=== PATIENT | female | born 1935 | race Caucasian/White ===

== ENCOUNTER → 2016-09-11 | Day surgery (SDC) | payer OTHER ==
[2016-08-21 12:55] VITALS: Ht 167.6 cm; Wt 63.6 kg
[~2016-09-11] VITALS: Ht 167.6 cm; Wt 63.6 kg
[~2016-09-11] MED LIST: 500ML BSS 0.3ML EPI 1:1000PF IRRIG ONE; ACETAMINOPHEN 325 MG TAB PO PRN; ALPR-411 PO; ALUMSUS2 PO; AMVISC PLUS 0.8ML SYRINGE INT OCU ONE; ATROPINE SULFATE 0.1 MG/ML 5ML SYR IV PRN; CALC1TAB9 PO; EpHEDrine SULFATE INJ 50 MG/ML AMP IV PRN; EpINEphrine INJ 1MG/ML AMP 1 MG/ML AMP ONE; LACTATED RINGER'S 1000ML 500 ML IV SCH; LIDOCAINE 3.5% OPH GEL PER APPLICATION CHARGE ONE; LIDOCAINE HCL 1% MPF 2 ML VIAL ONE; MIDAZOLAM HCL 1 MG/ML 2ML VIAL ONE; OCUCOAT 1 ML SOLN IO ONE; ONDANSETRON INJ 2 MG/ML 2 ML VIAL IV PRN; PANT20TA2 PO; PATIENT'S ALLERGY INFO NEEDS ENTERED SCH; PHENYLEPHRINE HCL 10% OP SOLN PER DROP CHARGE OPL SCH; POVIDONE-IODINE OP SOLN 30 ML BTL ONE; PROPARACAINE 0.5% OP SOLN PER DROP CHARGE OPL SCH; TOBRAMYCIN/DEXAMETHASONE OPH OINT PER APPLN CHARGE ONE; TRYPAN BLUE 0.15% FOR SURGI CENTER ONLY OP ONE
[2016-09-11] MEDS: PHENYLEPHRINE HCL 2.5% OP SOLN PER DROP CHARGE OPL SCH ×2 (08:23→08:30)
[2016-09-11] MEDS: TROPICAMIDE 1% OP SOLN PER DROP CHARGE OPL SCH ×2 (08:24→08:31)
[2016-09-11] MEDS: CYCLOPENTOLATE HCL 1% OP SOLN PER DROP CHARGE OPL SCH ×2 (08:25→08:32)
[2016-09-11] MEDS: KETOROLAC 0.5% OP SOLN PER DROP CHARGE OPL SCH ×2 (08:27→08:33)
[2016-09-11] MEDS: GATIFLOXACIN OP SOLN PER DROP CHARGE OPL SCH ×2 (08:28→08:38)
--- NOTE | 2016-09-11 09:03 | History & Physical Bridge - [place] ---
H&P Re-Evaluation Bridge Note: I have examined the patient, reviewed the History & Physical and in the interval since the performance of the History & Physical I have noted the following changes of clinical significance: No changes noted
--- NOTE | 2016-09-11 09:38 | Discharge Instructions-SurgCtr ---
Discharge Instructions Date of Service Sep 11, 2016. Visit Reason for Visit: Cataract Left Eye Discharge Discharge Diagnosis / Problem: cataract Discharge Goals Goal(s): Improve function Activity Recommendations Activity Limitations: per Instructions/Follow-up section Anesthesia . Post Anesthesia Instructions: If you have had General Anesthesia or IV Sedation: * Do not drive today. * Resume driving when surgeon permits. * Do not make important decisions or sign legal documents today. * Call surgeon for: 1. Temperature elevations greater than 101 degrees F. 2. Uncontrollable pain. 3. Excessive bleeding. 4. Persistent nausea and vomiting. 5. Medication intolerance (nausea, vomiting or rash). * For nausea and vomiting use only clear liquids such as: tea, soda, bouillon until nausea subsides, then gradually increase diet as tolerated. * If you have any concerns or questions, call your surgeon's office. If physician is unavailable and it is an emergency, call 911 or go to the nearest emergency room. . Instructions / Follow-Up Instructions / Follow-Up ACTIVITY RECOMMENDATIONS: * No strenuous lifting, jogging or running for 4 days * No swimming or yard work for 1 week. * Limited bending is permitted, such as putting on shoes. RETURN TO SCHOOL/WORK: No work until seen by physician in office. MEDICATIONS: Resume previous medications unless instructed otherwise by your surgeon. This includes eye drops for glaucoma. Zymaxid/Gatifloxacin (carmona cap) - one drop every 2 hours until bedtime Nevanac/Ilevro/Prolensa/Ketorolac (cowart cap) - one drop every 4 hours until bedtime Prednisolone (white/pink cap, SHAKE WELL) - one drop every 2 hours until bedtime Starting tomorrow - all 3 drops every 4 hours until seen in the office Optive drops - as needed for discomfort SPECIAL CARE INSTRUCTIONS: * Wear eyeshield when sleeping, for four nights. * You may wear your own glasses or sunglasses while awake. * You may read or watch TV * You may shower and wash your face, but be gentle around the eye and pat dry. * Blurry vision and mild irritation are normal. * Call office if pain is more severe or vision becomes dark at . FOLLOW UP VISIT: Follow-up with Dr Peterson tomorrow. Diet Recommendations Home Diet: resume previous diet Procedures Procedures Performed: Left Cataract Phacoemulsification With Intraocular Lens Implant Pending Studies Studies pending at discharge: no Medical Emergencies . Who to Call and When: Medical Emergencies: If at any time you feel your situation is an emergency, please call 911 immediately. . Non-Emergent Contact Non-Emergency issues call your: [employer] Education [employer] . . "Provider Documentation" section prepared by Ronaldo Peterson. .
--- NOTE | 2016-09-11 09:38 | [facility] Operative Report ---
Operative Report Date of Service Sep 11, 2016. Operative Report 1. PREOPERATIVE DIAGNOSIS: Cataract of the left eye. 2. POSTOPERATIVE DIAGNOSIS: Same. 3. PROCEDURE: Phacoemulsification with intraocular lens implantation of the left eye. SURGEON: Dr. Ronaldo Peterson. ANESTHESIA: Topical Lidocaine gel, 1% Non- Preserved intracameral Lidocaine, and monitored intravenous sedation. INDICATIONS FOR THE PROCEDURE: The patient is a 81 - year-old female with a history of cataract of the left eye causing significant visual impairment. The details of the proposed procedure were explained to the patient who asked appropriate questions and following discussion of all risks, benefits and alternatives agreed to have the procedure done. 4. OPERATION AND FINDINGS: DESCRIPTION OF PROCEDURE: After informed consent was obtained, the patient was brought to the Operating Room at the [facility]. The patient was placed in a supine position and then the left eye was prepped and draped in the usual sterile fashion for intraocular surgery. A drop of topical Lidocaine gel was placed in the operative eye. A wire lid speculum was then placed in the fornices. A corneal paracentesis was then created temporally. The Non-Preserved Lidocaine was then instilled into the anterior chamber. The anterior chamber was then pressurized with viscoelastic. A 2.0 mm clear corneal incision was then created temporally. A cystotome was inserted into the anterior chamber and used to create a tear in the anterior lens capsule. This capsular tear was then used to create a small flap and the flap was dragged in a counterclockwise direction in order to create a continuous curvilinear capsulorrhexis. Hydrodissection was accomplished with balanced salt solution. Phacoemulsification of the lens nucleus was then performed in a standard [id number] technique. The phaco time was 50 seconds with an average power of 26 %. The remaining cortical material was removed using irrigation aspiration. The capsular bag was then filled with viscoelastic. A Bausch [employer] Lomb MI60L +22.0 diopters lens was then loaded into the injector and injected into the capsular bag. The remaining viscoelastic was removed with the irrigation aspiration handpiece. The wound was hydrated and then checked and found to be watertight. The intraocular pressure was checked and found to be adequate. The wire lid speculum was removed and the patient's face was cleaned and dried. TobraDex ointment was placed in the inferior fornix. The patient was discharged to the Recovery Room having tolerated the procedure well. There were no complications. The patient will be seen tomorrow in the office for follow-up. I attest to the content of the Intraoperative Record and any orders documented therein. Any exceptions are noted below.
[2016-09-11 09:41] VITALS: TEMP 36.1
--- NOTE | 2016-09-11 09:47 | Anesthesia Progress Nt - [facility] ---
Anesthesia Post Op Note Date & Time Sep 11, 2016 at 09:47 Vital Signs Pain Intensity: 0 Vital Signs Past 12 Hours Date Time Temp Pulse Resp B/P (MAP) Pulse Ox O2 Delivery O2 Flow Rate FiO2 09/11/16 09:41 36.1 78 16 112/73 (86) 97 Room Air 09/11/16 08:14 36.4 89 18 148/86 (106) 97 Room Air Notes Mental Status: alert / awake / arousable, participated in evaluation Pt Amnestic to Procedure: Yes Nausea / Vomiting: adequately controlled Pain: adequately controlled Airway Patency, RR, SpO2: stable & adequate BP & HR: stable & adequate Hydration State: stable & adequate Anesthetic Complications: no major complications apparent
[2016-09-11 09:55] VITALS: BP 125/71; PULSE 80; O2SAT 98
== END | disposition home or self-care (01) ==
LOC: X.SURG 07:18
PROVIDERS: ATTEND Ophthalmology
DX: H26.9 Unspecified cataract (principal); Z68.23 Body mass index [BMI] 23.0-23.9, adult; Z90.89 Acquired absence of other organs; Z90.49 Acquired absence of other specified parts of digestive tract

== ENCOUNTER → 2016-10-16 | Day surgery (SDC) | payer OTHER ==
[2016-09-19 14:43] VITALS: Ht 167.6 cm; Wt 63.6 kg
[~2016-10-16] VITALS: Ht 167.6 cm; Wt 63.6 kg
[~2016-10-16] MED LIST changes: +BSS FLUSH ONE; -ONDANSETRON INJ 2 MG/ML 2 ML VIAL IV PRN; +PANT20TA PO; -PANT20TA2 PO; -PATIENT'S ALLERGY INFO NEEDS ENTERED SCH; -PHENYLEPHRINE HCL 10% OP SOLN PER DROP CHARGE OPL SCH; +PHENYLEPHRINE HCL 10% OP SOLN PER DROP CHARGE OPR SCH; -PROPARACAINE 0.5% OP SOLN PER DROP CHARGE OPL SCH; +PROPARACAINE 0.5% OP SOLN PER DROP CHARGE OPR SCH; -TRYPAN BLUE 0.15% FOR SURGI CENTER ONLY OP ONE
[2016-10-16] MEDS: PHENYLEPHRINE HCL 2.5% OP SOLN PER DROP CHARGE OPR SCH ×2 (07:23→07:29)
[2016-10-16] MEDS: TROPICAMIDE 1% OP SOLN PER DROP CHARGE OPR SCH ×2 (07:24→07:30)
[2016-10-16] MEDS: CYCLOPENTOLATE HCL 1% OP SOLN PER DROP CHARGE OPR SCH ×2 (07:25→07:31)
[2016-10-16] MEDS: KETOROLAC 0.5% OP SOLN PER DROP CHARGE OPR SCH ×2 (07:26→07:32)
[2016-10-16] MEDS: GATIFLOXACIN OP SOLN PER DROP CHARGE OPR SCH ×2 (07:27→07:38)
--- NOTE | 2016-10-16 08:29 | [facility] Operative Report ---
Operative Report Date of Service Oct 16, 2016. Operative Report 1. PREOPERATIVE DIAGNOSIS: Cataract of the right eye. 2. POSTOPERATIVE DIAGNOSIS: Same. 3. PROCEDURE: Phacoemulsification with intraocular lens implantation of the right eye. SURGEON: Dr. Ronaldo Peterson. ANESTHESIA: Topical Lidocaine gel, 1% Non- Preserved intracameral Lidocaine, and monitored intravenous sedation. INDICATIONS FOR THE PROCEDURE: The patient is a 81 - year-old female with a history of cataract of the right eye causing significant visual impairment. The details of the proposed procedure were explained to the patient who asked appropriate questions and following discussion of all risks, benefits and alternatives agreed to have the procedure done. 4. OPERATION AND FINDINGS: DESCRIPTION OF PROCEDURE: After informed consent was obtained, the patient was brought to the Operating Room at the [facility]. The patient was placed in a supine position and then the right eye was prepped and draped in the usual sterile fashion for intraocular surgery. A drop of topical Lidocaine gel was placed in the operative eye. A wire lid speculum was then placed in the fornices. A corneal paracentesis was then created temporally. The Non-Preserved Lidocaine was then instilled into the anterior chamber. The anterior chamber was then pressurized with viscoelastic. A 2.0 mm clear corneal incision was then created temporally. A cystotome was inserted into the anterior chamber and used to create a tear in the anterior lens capsule. This capsular tear was then used to create a small flap and the flap was dragged in a counterclockwise direction in order to create a continuous curvilinear capsulorrhexis. Hydrodissection was accomplished with balanced salt solution. Phacoemulsification of the lens nucleus was then performed in a standard [id number] technique. The phaco time was 25 seconds with an average power of 14 %. The remaining cortical material was removed using irrigation aspiration. The capsular bag was then filled with viscoelastic. A Bausch & Lomb MI60L +21.5 diopters lens was then loaded into the injector and injected into the capsular bag. The remaining viscoelastic was removed with the irrigation aspiration handpiece. The wound was hydrated and then checked and found to be watertight. The intraocular pressure was checked and found to be adequate. The wire lid speculum was removed and the patient's face was cleaned and dried. TobraDex ointment was placed in the inferior fornix. The patient was discharged to the Recovery Room having tolerated the procedure well. There were no complications. The patient will be seen tomorrow in the office for follow-up. I attest to the content of the Intraoperative Record and any orders documented therein. Any exceptions are noted below.
--- NOTE | 2016-10-16 08:29 | Discharge Instructions-SurgCtr ---
Discharge Instructions Date of Service Oct 16, 2016. Visit Reason for Visit: Right Cataract Discharge Discharge Diagnosis / Problem: cataract Discharge Goals Goal(s): Improve function Activity Recommendations Activity Limitations: per Instructions/Follow-up section Anesthesia . Post Anesthesia Instructions: If you have had General Anesthesia or IV Sedation: * Do not drive today. * Resume driving when surgeon permits. * Do not make important decisions or sign legal documents today. * Call surgeon for: 1. Temperature elevations greater than 101 degrees F. 2. Uncontrollable pain. 3. Excessive bleeding. 4. Persistent nausea and vomiting. 5. Medication intolerance (nausea, vomiting or rash). * For nausea and vomiting use only clear liquids such as: tea, soda, bouillon until nausea subsides, then gradually increase diet as tolerated. * If you have any concerns or questions, call your surgeon's office. If physician is unavailable and it is an emergency, call 911 or go to the nearest emergency room. . Instructions / Follow-Up Instructions / Follow-Up ACTIVITY RECOMMENDATIONS: * No strenuous lifting, jogging or running for 4 days * No swimming or yard work for 1 week. * Limited bending is permitted, such as putting on shoes. RETURN TO SCHOOL/WORK: No work until seen by physician in office. MEDICATIONS: Resume previous medications unless instructed otherwise by your surgeon. This includes eye drops for glaucoma. Zymaxid/Gatifloxacin (carmona cap) - one drop every 2 hours until bedtime Nevanac/Ilevro/Prolensa/Ketorolac (cowart cap) - one drop every 4 hours until bedtime Prednisolone/Durezol (white/pink cap, SHAKE WELL) - one drop every 2 hours until bedtime Starting tomorrow - all 3 drops every 4 hours until seen in the office Optive drops - as needed for discomfort SPECIAL CARE INSTRUCTIONS: * Wear eyeshield when sleeping, for four nights. * You may wear your own glasses or sunglasses while awake. * You may read or watch TV * You may shower and wash your face, but be gentle around the eye and pat dry. * Blurry vision and mild irritation are normal. * Call office if pain is more severe or vision becomes dark at . FOLLOW UP VISIT: Follow-up with Dr Peterson tomorrow. Diet Recommendations Home Diet: resume previous diet Procedures Procedures Performed: Right Cataract Phacoemulsification With Intraocular Lens Implant Pending Studies Studies pending at discharge: no Medical Emergencies . Who to Call and When: Medical Emergencies: If at any time you feel your situation is an emergency, please call 911 immediately. . Non-Emergent Contact Non-Emergency issues call your: [employer] . . "Provider Documentation" section prepared by Ronaldo Peterson. .
[2016-10-16 08:30] VITALS: TEMP 36.5
--- NOTE | 2016-10-16 08:37 | Anesthesia Progress Nt - [facility] ---
Anesthesia Post Op Note Date & Time Oct 16, 2016 at 08:37 Vital Signs Pain Intensity: 0 Vital Signs Past 12 Hours Date Time Temp Pulse Resp B/P (MAP) Pulse Ox O2 Delivery O2 Flow Rate FiO2 10/16/16 08:30 36.5 78 16 105/70 (82) 97 Room Air 10/16/16 07:15 36.5 81 22 150/82 (104) 98 Room Air Notes Mental Status: alert / awake / arousable, participated in evaluation Pt Amnestic to Procedure: Yes Nausea / Vomiting: adequately controlled Pain: adequately controlled Airway Patency, RR, SpO2: stable & adequate BP & HR: stable & adequate Hydration State: stable & adequate Anesthetic Complications: no major complications apparent
[2016-10-16 08:52] VITALS: BP 122/75; PULSE 72; O2SAT 98
== END | disposition home or self-care (01) ==
LOC: X.SURG 06:30
PROVIDERS: ATTEND Ophthalmology
DX: H26.9 Unspecified cataract (principal); I10 Essential (primary) hypertension; E78.5 Hyperlipidemia, unspecified; K21.9 Gastro-esophageal reflux disease without esophagitis; F41.9 Anxiety disorder, unspecified; Z79.899 Other long term (current) drug therapy

== ENCOUNTER 2023-11-08 12:24 | Observation (INO) ==
[2023-11-08 13:26] LABS: Basophils # (auto) 0.05 K/uL (0.00-0.20); Basophils % (auto) 0.4 %; Eosinophils # (auto) 0.04 K/uL (0.00-0.50); Eosinophils % (auto) 0.3 %; Hematocrit (blood only) 46.8 % (37.0-47.0); Hemoglobin 15.3 g/dl (12.0-16.0); Immature Granulocytes # (auto) 0.07 K/uL (0.01-0.20); Immature Granulocytes % (auto) 0.6 %; Lymphocytes % (auto) 31.7 %; Mean Corpuscular Hemoglobin 28.8 pg (25.0-34.0); Mean Corpuscular Hgb Conc 32.7 g/dL (32.0-36.0); Mean Corpuscular Volume 88.1 fL (80.0-100.0); Mean Platelet Volume 11.6 fL (9.4-12.4); Monocytes # (auto) 0.83 K/uL (0.11-0.59); Monocytes % (auto) 6.6 %; Neutrophils # (auto) 7.64 K/uL (1.40-6.50); Neutrophils % (auto) 60.4 %; Platelet Count 301 K/uL (130-400); RDW Coefficient of Variation 14.9 % (11.5-14.5); RDW Standard Deviation 47.1 fL (36.4-46.3); Red Blood Count 5.31 M/uL (4.20-5.40); White Blood Count 12.63 K/ul (4.8-10.8)
[2023-11-08 13:35] LABS: Albumin Globulin Ratio 1.5 (0.9-2); Albumin Level 4.3 gm/dl (3.4-5.0); BUN Creatinine Ratio 13.9 (10-20); Bilirubin,Total 0.6 mg/dl (0.2-1.0); Creatinine Clr Calc Pharmacy 35.7 ml/min; Est GFR (African American) 49.9 ml/min; Globulin 2.9 gm/dl (2.5-4.0); Potassium 4.4 mmol/L (3.5-5.1); Total Protein 7.2 gm/dl (6.0-8.3)
[2023-11-08 13:43] LABS: Troponin I High Sensitivity 5.4 pg/ml (0-14)
[2023-11-08 13:56] LABS: Partial Thromboplastin Ratio 0.9; Partial Thromboplastin Time 25 Seconds (21-31); Prothrombin Time 10.5 Seconds (9.0-12.0)
[2023-11-08] MEDS: OPTIRAY 320 100ml IV ONE (14:30)
--- NOTE | 2023-11-08 15:05 | CT Scan Report ---
ABDOMEN AND PELVIS CT WITH IV CONTRAST CT DOSE: 1100.21 mGy.cm HISTORY: rectal bleeding TECHNIQUE: Multiaxial CT images of the abdomen and pelvis were performed following the use of intrave nous contrast. A dose lowering technique was utilized adhering to the principles of ALARA. COMPARISON STUDY: None. FINDINGS: The lung bases are clear. No pneumoperitoneum. No pneumatosis. No acute fractures. Mitral a nnulus calcifications are noted. Prior cholecystectomy. The main portal vein is patent. The liver, sp sam, left adrenal gland, and pancreas are unremarkable. Bilateral renal hypodense lesions are noted with the largest on the left measuring 1.5 cm. These favor cysts. However, the majority of these hypo dense lesions are technically too small to characterize. There is an indeterminate 2.9 cm right adren al gland nodule. A few prominent periportal lymph nodes are noted. Moderate to severe calcified plaqu e within the normal caliber abdominal aorta. No retroperitoneal or pelvic lymphadenopathy. No pelvic free fluid. Normal bladder. Prior hysterectomy. Colonic diverticulosis. No evidence for acute diverti culitis. No bowel wall thickening or obstruction. IMPRESSION: 1. No bowel wall thickening or obstruction. 2. Colonic diverticulosis. No evidence for acute diverticulitis. 3. Prior cholecystectomy and hysterectomy. 4. An indeterminate 2.9 cm right adrenal gland nodule. 5. Additional findings as described above. ACT 112: Negative or not required by law. Electronically signed by: Carroll Ovalle M.D. 11/08/2023 3:04 PM
--- NOTE | 2023-11-08 17:12 | History & Physical Report ---
Date of Service November 08, 2023 History of Present Illness Chief Complaint: rectal bleeding Primary Care Provider: Nicole Gamble MD Patient is 88 year old female with PMH HTN, dyslipidemia paroxysmal atrial fibrillation, GERD History LUE DVT 03/2023 after acute left humerus fracture 02/2023 treated with Eliquis x 3 months. 05/15/2023 LUE venous Doppler negative for DVT Negative Cologuard 12/[address] scan 2020 Allergies Allergy/AdvReac Type Severity Reaction Status Date / Time benzonatate AdvReac Intermediate "FELT Verified 11/08/23 16:47 SPACED OUT" Home Medications Medication Instructions Recorded Confirmed Type metoprolol succinate 25 mg 25 mg PO QAM 12/27/19 11/08/23 History tablet,extended release 24 hr famotidine 20 mg tablet 20 mg PO QAM 11/08/23 11/08/23 History Past Med/Surg History Problem List (Updated 11/08/23 @ 17:16 by Orlin Tejada MD) Acute lower GI bleeding (Acute) Left humeral fracture Osteoporosis (Chronic) HTN (hypertension) (Chronic) Vitamin D deficiency (Chronic) GERD (gastroesophageal reflux disease) (Chronic) Dyslipidemia (Chronic) Surgical History Status post cataract extraction and insertion of intraocular lens Status post cholecystectomy Status post hysterectomy Family History Sister Leukemia Brother Diabetes Daughter Lymphoma Social History Smoking Status: Former smoker Hx Alcohol Use: No Hx Substance Use: No Preferred Language: Kazakh Communication Ability: Effective Fire Protection Designer Required: No Beliefs That Will Affect Care: None Current Living Situation: Alone Feels Safe at Home: Yes Assistive Devices: None Results & Data Results & Data Vital Signs (Past 12 Hours) Vital Signs Temp Pulse Pulse Resp BP BP Pulse Ox 11/08/23 14:45 80 20 153/88 H 96 11/08/23 14:09 89 11/08/23 13:30 151/97 H 11/08/23 13:30 83 18 97 11/08/23 13:23 147/96 H 11/08/23 13:21 98 H 22 95 11/08/23 13:18 88 97 11/08/23 13:09 87 16 97 11/08/23 12:33 36.6 C 94 H 20 182/68 H 96 O2 Del Method 11/08/23 14:45 Room Air 11/08/23 14:09 11/08/23 13:30 11/08/23 13:30 11/08/23 13:23 11/08/23 13:21 11/08/23 13:18 Room Air 11/08/23 13:09 11/08/23 12:33 Room Air
--- OUTSIDE RECORDS SUMMARY | 2023-11-08 17:13 | External Medical Summary | Summary of Care ---
Author Name Unknown Organization [facility] Address [address] [place] [address] Phone [phone] Care Team Providers Care Deicer Repairer Electric Name Role Phone Nicole Gamble MD Primary Care Provider [phone] Reason for Visit * Reason Onset Date Comments Medication Refill 07/04/2023 Encounter Details Date Type Department Care Team (Late st Contact Info) Description 07/04/2023 Refill General Internal Medicine [facility] [address] [facility] [place] [phone] Nicole Gamble MD 200 [facility], [place] [id number] Paroxysmal A-fib (HCC); HTN, goal below 140/90 Allergies Active Allergy Reactions Criticality Noted Date Comments Benzonatate Other (Please comment) Medium 02/20/2011 Feeling "spaced out" documented as of this encounter (statuses as of 07/04/2023) Medications Medication Sig Dispensed Refills Start Date End Date Status Vitamin D-3 25 MCG (1000 UT) Oral Capsule Take 1 Capsule by mouth in the morning. 0 Active Ondansetron HCl 4 MG Oral TabletIndications: Bilateral upper abdominal discomfort,Nausea without vomiting Take 1 Tablet by mouth every 8 hours as needed for Nausea. 30 Tablet 0 12/21/2022 Active traMADol HCl 50 MG Oral Tablet (Ultram)Indication s:Closed fracture of shaft of left humerus with routine healing, unspecified fracture morphology, subsequent encounter Take 1 Tablet by mouth every 8 hours as needed. 0 02/08/2023 Active Famotidine 20 MG Oral Tablet (Pepcid)Indication s:Gastroesophageal reflux disease without esophagitis Take 1 Tablet by mouth daily. 90 Tablet 3 04/07/2023 Active Apixaban 5 MG Oral Tablet (Eliquis)Indicatio ns:Acute deep vein thrombosis (DVT) of brachial vein of left upper extremity (HCC),Closed fracture of shaft of left humerus with routine healing, unspecified fracture morphology, subsequent encounter Take 1 Tablet by mouth in the morning and 1 Tablet before bedtime. Started by [facility] 03/16/23 , US arm 3rd wk may. Do not start before May 11, 2023. 60 Tablet 0 05/11/2023 Active Loratadine 10 MG Oral Tablet (Claritin)Indicati ons:Post-nasal drip Take 1 Tablet by mouth at bedtime. 30 Tablet 11 05/02/2023 Active Metoprolol Succinate ER 25 MG Oral Tablet Extended Release 24 Hour (toPROL XL)Indications:Par oxysmal A-fib (HCC),HTN, goal below 140/90 TAKE 1 TABLET BY MOUTH IN THE MORNING 90 Tablet 3 07/04/2023 Active Metoprolol Succinate ER 25 MG Oral Tablet Extended Release 24 Hour (toPROL XL)Indications:Par oxysmal A-fib (HCC),HTN, goal below 140/90 TAKE 1 TABLET BY MOUTH IN THE MORNING 90 Tablet 3 07/17/2022 07/04/2023 Discontinued (Refill) documented as of this encounter (statuses as of 07/04/2023) Active Problems Problem Noted Date Diagnosed Date Adrenal adenoma, right 10/10/2020 Overview: 01/26--CT adrenal--c/w benign adrenal adenoma 3.2 x 2.5cm,small hiatal hernia, fatty atrophy pancreas and atherosclerosis vessels,aortic root and coronary artery calcifications. 09/26-CT of the abdomen pelvis-small hiatal hernia, bilateral renal cysts which are simple. 3.2 x 2 cm Indeterminate right adrenal lesion. ++yoav Complex renal cyst 08/21/2020 Overview: 08/26-US-c/w MRD, 1 cm complex cyst Prediabetes 08/16/2020 Overview: Per Prediabetes protocol Closed fracture of right humerus with routine he aling 05/09/2020 [facility] Gastroes[facility] reflux disease without esophagi tis 07/21/2019 Paroxysmal A-fib 09/23/2018 Immunization refused 02/03/2018 Status post cataract extraction 02/03/2018 Advanced directives, counseling/discussion 08/29 Family history of diabetes mellitus 06/19/2011 Papanicolaou smear 06/19/2011 Overview: Vag smear - 2003--no iel. Per INSPECTOR SUBASSEMBLIES Note--2003--S/P WALDEMAR done in 1973 and BSO was done in 1975. Vitamin D deficiency 06/19/2011 Overview: 06/17=8--st 50k 2/wk HTN, goal below 140/90 02/20/2011 Senile osteoporosis 01/23/2011 Overview: 08/19-ref meds. 06/17---REFUSES meds/hiroc DEXA:05/2010: Lumbar spine: -3.9/ Femoral neck:-3.3 high risk Dyslipidemia, goal LDL below 130 03/21/2009 Overview: Per Lipid Taxonomy. Rx refused, attempting lifestyle changes Anxiety 07/07/2004 Overview: Rare use xanax (dtr 2009) documented as of this encounter (statuses as of 07/04/2023) Resolved Problems Problem Noted Date Diagnosed Date Resolved Date Kidney disease, chronic, sta ge III (GFR 30-59 ml/min) 02/17/2018 09/23/2018 Overview: Per CKD protocol #1 Abnormal finding on EKG 07/12/201509/06 Overview: 07/22--er--ST,?old inf mi---pt refuses further franklin Refusal of treatment by patient 07/12/2015 09/23/2018 Overview: 07/22-refuses to use inhaler, franklin abn ekg GERD (gastroesophageal reflux disease) 01/23/2012 07/21/2019 Special screening for malign ant neoplasms, colon 06/19/2011 03/25/2019 Overview: 06/17---declines csope--will do fobt --08/19-same Encounter for screening mamm ogram for breast cancer 02/27/2011 03/25/2019 Overview: 03/21-Lt neg;-Rt FAD-SCV/US-neg rec 6mth fu+++++ Neg 02/17;;03/20; 02/16--left --neg--Rt --FAD 12 ocl--SCV/US---neg Impaired fasting glucose 02/20/2011 HYPERCHOLESTEROLEMIA 07/08/200303/21/ 009 Overview: Per Lipid Taxonomy. Rx refused, attempting lifestyle changes Senile cataract 07/08/2003 02/03/2018 documented as of this encounter (statuses as of 07/04/2023) Immunizations Name Administration Dates Next Due COVID-19 mRNA, LNP-s, No Pre serve, 2-Dose Series (SyndicateRoom) 03/16/2021,01/11/2021 documented as of this encounter Social History Tobacco Use Types Packs/Day Years Used Date Smoking Tobacco: Never Smokeless Tobacco: Never Alcohol Use Standard Drinks/Week Comments No 0 (1 standard drink = 0.6 oz pur e alcohol) PHQ-2 Answer Date Recorded PHQ Adult Total Score 0 04/17/2022 Hunger Vital Sign Answer Date Recorded Within the past 12 months, y ou worried that your food would run out before you got the money to buy more. Never true 08/09/19 21 Within the past 12 months, t he food you bought just didn't last and you didn't have money to get more. Never true 08/08/2020 Sex and Gender Information Value Date Recorded Sex Assigned at Female 09/23/2018 11:20 AM EDT Gender Identity Female 09/23/2018 11:20 AM EDT Sexual Orientation Straight 09/23/2018 11 :20 AM EDT Job Start Date Occupation Industry Not on file Not on file Not on file documented as of this encounter Miscellaneous Notes * Telephone Encounter - Shannon Farias [facility] - 07/04/2023 4:08 PM EDTSigned Prescriptions: Disp Refills Metoprolol Succinate ER 25 MG Oral Tablet *90 Tab*3 Sig: TAKE 1 TABLET BY MOUTH IN THE MORNING Authorizing Provider: NICOLE GAMBLE Ordering User: SHANNON FARIAS * Telephone Encounter - Luis Alex, morgue technician - 07/04/2023 3:30 PM EDT Pt low on meds. Did you pend patient's preferred pharmacy and medication before forwarding?yes Pharmacy: [facility] [address] Pending Prescriptions: Disp Refills Metoprolol Succinate ER 25 MG Oral Tablet*90 Tab*3 Sig: TAKE 1 TABLET BY MOUTH IN THE MORNING Last Visit: 05/02/2023 (in office), 08/05/2019 (telemedicine) Next Visit: 08/19/2023 If no future appointments scheduled, and last appointment is greater than a year ago, please schedule patient for a follow-up appointment Last date the medication was ordered: 07/17/2022 Is this request for a controlled substance?No Urine Drug Screen:No results found for this or any previous visit. Patient Phone Numbers Labs: Lab Results Component Value Date/Time CREAT 1.1 (H) 06/20/2023 06:59 AM CREAT 1.0 07/21/2019 11:20 AM POTASSIUM 5.1 06/20/2023 06:59 AM POTASSIUM 5.0 07/21/2019 11:20 AM TSH 3.98 08/08/2020 12:42 PM TSH 3.20 06/14/2011 07:05 AM LDLCALC 175 (H) 04/17/2022 09:20 AM LDLCALC 174 (H) 07/21/2019 11:27 AM LDLDIRECT 178 (H) 12/21/2022 10:35 AM LDLDIRECT NOT APPLICABLE 07/21/2019 11:27 AM LDLDIRECT 186 (H) 07/10/2004 07:00 AM ALT 14 06/20/2023 06:59 AM ALT 14 2013 07:03 AM HGBA1C 6.2 (H) 06/20/2023 06:59 AM documented in this encounter Plan of Treatment Upcoming Encounters Date Type Department Care Team (Late st Contact Info) Description 07/23/2023 12:30 PM EDT Office Visit Gastroenterology, [facility] [place] [address] [place] [phone] Renetta Hernandez PA-C [address] [place] [address] 08/19/2023 11:20 AM EDT Office Visit General Internal Medicine [facility] 200 [place] [address] Nicole Gamble MD 200 [place] [address] Health Maintenance Due Date Last Done Comments DTaP,Tdap,and Td Vaccines (1 - Tdap) 1954 Zoster Vaccines (1 of 2) 09/08/1987 Pneumococcal Vaccine: 65+ Years (1 of 1 - PCV) 2002 DXA Scan 05/17/2012 05/17/2010, 05/17/2010 *BISPHONATE OR OTHER ACCEPTABLE MEDICATION NEEDED FOR OSTEOPOROSIS (REFER TO SMARTSET #1146) 01/12/2016 COVID-19 Vaccine ( season) 2022 03/16/2021, 01/11/2021 Influenza Vaccine (FLU shot) (#1) 2022 Depression Screening 04/17/2023 04/17/2022 HbA1c 06/19/2024 06/20/2023, 12/07, 04/17/2022, Additional history exists Albumin/Creatinine Ratio 04/17/2025 04/17/2022 VITAMIN D LEVEL ONCE IN A LIFETIME-USE SMARTSET# 11177 Completed 06/20/2023, 12/21/2022, 04/17/2022, Additional history exists GARDASIL-HPV IMMUNIZATION SERIES Aged Out No longer eligible based on patient's age to complete this topic Hepatitis B Aged Out No longer eligi ble based on patient's age to complete this topic MENINGOCOCCAL (MENACTRA/MENVEO) Aged Out No longer eligible based on patient's age to complete this topic documented as of this encounter Medical Devices Not on filedocumented as of this encounter Visit Diagnoses Diagnosis Paroxysmal A-fib (HCC) Atrial fibrillation HTN, goal below 140/90 Unspecified essential hypertension documented in this encounter Care Teams Deicer Repairer Electric Relationship Specialty Start Date End Date Nicole Gamble MD 200 [place] [address] PCP - General Internal Medicine 11/21/10 documented as of this encounter
--- OUTSIDE RECORDS SUMMARY | 2023-11-08 17:13 | External Medical Summary | Summary of Care ---
Author Name Unknown Organization [facility] Address [address] [place] [address] Phone [phone] Care Team Providers Care Middle School Band Teacher Name Role Phone Nicole Gabmle MD Primary Care Provider [phone] Reason for Visit * Reason Onset Date Comments Test Results 07/04/2023 Encounter Details Date Type Department Care Team (Late st Contact Info) Description 07/04/2023 Telephone General Internal Medicine [facility] [address] [place] [address] Nicole Gamble MD [address] [place] [address] Test Results Allergies Active Allergy Reactions Criticality Noted Date Comments Benzonatate Other (Please comment) Medium 02/20/2011 Feeling "spaced out" documented as of this encounter (statuses as of 08/07/2023) Medications Medication Sig Dispensed Refills Start Date End Date Status Vitamin D-3 25 MCG (1000 UT) Oral Capsule Take 1 Capsule by mouth in the morning. 0 Active Ondansetron HCl 4 MG Oral TabletIndications:Devyn ateral upper abdominal discomfort,Nausea without vomiting Take 1 Tablet by mouth every 8 hours as needed for Nausea. 30 Tablet 0 12/21/2022 Active traMADol HCl 50 MG Oral Tablet (Ultram)Indications:C losed fracture of shaft of left humerus with routine healing, unspecified fracture morphology, subsequent encounter Take 1 Tablet by mouth every 8 hours as needed. 0 02/08/2023 Active Famotidine 20 MG Oral Tablet (Pepcid)Indications:G astroesophageal reflux disease without esophagitis Take 1 Tablet by mouth daily. 90 Tablet 3 04/07/2023 Active Apixaban 5 MG Oral Tablet (Eliquis)Indications: Acute deep vein thrombosis (DVT) of brachial vein of left upper extremity (HCC),Closed fracture of shaft of left humerus with routine healing, unspecified fracture morphology, subsequent encounter Take 1 Tablet by mouth in the morning and 1 Tablet before bedtime. Started by [facility] 03/16/23 , US arm 3rd wk may. Do not start before May 11, 2023. 60 Tablet 0 05/11/2023 Active Loratadine 10 MG Oral Tablet (Claritin)Indications :Post-nasal drip Take 1 Tablet by mouth at bedtime. 30 Tablet 11 05/02/2023 Active documented as of this encounter (statuses as of 08/07/2023) Active Problems Problem Noted Date Diagnosed Date [...] with routine he aling 05/09/2020 Overview: 12/2019-panchito Leone-[facility] Gastroesophageal reflux disease without esophagi tis 07/21/2019 Paroxysmal A-fib 09/23/2018 Immunization refused 02/03/2018 Status post cataract extraction 02/03/2018 Advanced directives, counseling/discussion 08/29 Family history of diabetes mellitus 06/19/2011 Papanicolaou smear 06/19/2011 Overview: Vag smear - 2003--no iel. Per [employer] OFFICER Note--2003--S/P WALDEMAR done in 1973 and BSO [...] as of this encounter (statuses as of 08/07/2023) Resolved Problems Problem Noted Date Diagnosed Date [...] as of this encounter (statuses as of 08/07/2023) Immunizations Name Administration Dates Next Due COVID-19 mRNA, LNP-s, No Pre serve, 2-Dose Series ([employer]ft) 03/16/2021,01/11/2021 documented as of this encounter Social [...] encounter Miscellaneous Notes * Telephone Encounter - Felicity Gibbs RN - 08/07/2023 12:31 PM EDT US scheduled for 07/17 - Message from Sean Servin MD sent at 07/26/2023 1:52 PM EDT ----- Liver ultrasound looks ok, would continue recs from pcp for elevated alk phos Encounter closed * Telephone Encounter - Gianna Roberto MED ASSIST - 07/09/2023 8:39 AM EDT Patient aware and verbalized understanding Please assist with scheduling U/S * Telephone Encounter - Felicity Gibbs RN - 07/04/2023 2:38 PM EDT ----- Message from Nicole Gamble MD sent at 07/02/2023 11:42 PM EDT ----- A1c consistent with prediabetes 6.2%, vitamin-D remains low at 16, normal CBC, CMP except alk phos higher. -yoav US liver, to comply with taking vit d daily -refer to GI for eval. documented in this encounter Plan of Treatment Upcoming Encounters Date Type Department Care Team (Late st Contact Info) Description 08/09/2023 11:00 AM EDT Office Visit Gastroenterology, [address] [phone] Yelena Moreau PA-C [facility] [place] [address] 08/19/2023 11:20 AM EDT Office Visit General Internal Medicine [facility] [address] [place] [address] Nicole Gamble MD [address] [place] [address] Health Maintenance Due Date Last Done Comments DTaP,Tdap,and Td Vaccines (1 - Tdap) 1954 Zoster Vaccines (1 of 2) 09/08/1987 Pneumococcal Vaccine: 65+ Years (1 of 1 - PCV) 2002 DXA Scan 05/17/2012 05/17/2010, 05/17/2010 *BISPHONATE OR OTHER ACCEPTABLE MEDICATION NEEDED FOR OSTEOPOROSIS (REFER TO SMARTSET #1146) 01/12/2016 COVID-19 Vaccine (24 season) 2022 03/16/2021, 01/11/2021 Depression Screening 04/17/2023 04/17/2022 Influenza Vaccine (FLU shot) (Season Ended) 2023 HbA1c 06/19/2024 06/20/2023, 12/07, 04/17/2022, Additional history exists Albumin/Creatinine Ratio 04/17/2025 04/17/2022 VITAMIN D LEVEL ONCE IN A LIFETIME-USE SMARTSET# [id number] Completed 06/20/2023, 12/21/2022, 04/17/2022, Additional history exists [...] Not on filedocumented as of this encounter Care Teams Middle School Band Teacher Relationship Specialty Start Date End Date Nicole Gamble MD [address] [place] [address] PCP - General Internal Medicine 11/21/10 documented as of this encounter
--- OUTSIDE RECORDS SUMMARY | 2023-11-08 17:13 | External Medical Summary | Summary of Care ---
Author Name Unknown Organization [facility] Address [address] [place] [address] Phone [phone] Care Team Providers Care Narrow Gauge Operator Name Role Phone Nicole Gamble MD Primary Care Provider [phone] Reason for Visit * Reason Onset Date Comments Appointment 07/12/2023 Encounter Details Date Type Department Care Team (Late st Contact Info) Description 07/12/2023 Telephone General Internal Medicine [facility] [address] [place] [address] Nicole Gamble MD 200 [place] [address] Appointment Allergies Active Allergy Reactions Criticality Noted Date Comments Benzonatate Other (Please comment) Medium 02/20/2011 Feeling "spaced out" documented as of this encounter (statuses as of 07/12/2023) Medications Medication Sig Dispensed Refills Start Date [...] Oral Tablet Extended Release 24 Hour (toPROL XL)Indications:Paroxy smal A-fib (HCC),HTN, goal below 140/90 TAKE 1 TABLET BY MOUTH IN THE MORNING 90 Tablet 3 07/04/2023 Active documented as of this encounter (statuses as of 07/12/2023) Active Problems Problem Noted Date Diagnosed Date [...] with routine he aling 05/09/2020 Overview: 12/2019-panchito Leone-[facility] Gastroesophageal reflux disease without esophagi tis 07/21/2019 Paroxysmal A-fib 09/23/2018 Immunization refused 02/03/2018 Status post cataract extraction 02/03/2018 Advanced directives, counseling/discussion 08/29 Family history of diabetes mellitus 06/19/2011 Papanicolaou smear 06/19/2011 Overview: Vag smear - 2003--no iel. Per SUPERVISOR CELLARS Note--2003--S/P WALDEMAR done in 1973 and BSO was done in 1975. Vitamin D deficiency 06/19/2011 Overview: 06/17=8--st 50k 2/wk HTN, goal below 140/90 02/20/2011 Senile osteoporosis 01/23/2011 Overview: 08/19-ref meds. 06/17---REFUSES meds/hiroc DEXA:05/2010: Lumbar spine: -3.9/ Femoral neck:-3.3 high risk Dyslipidemia, goal LDL below 130 03/21/2009 Overview: Per Lipid Taxonomy. Rx refused, attempting lifestyle changes Anxiety 07/07/2004 Overview: Rare use xanax (dtr 2009 BCL) documented as of this encounter (statuses as of 07/12/2023) Resolved Problems Problem Noted Date Diagnosed Date [...] ogram for breast cancer 02/27/2011 03/25/2019 Overview: 12/14-Lt neg;-Rt FAD-SCV/US-neg rec 6mth fu+++++ Neg 02/17;;03/20; 02/16--left --neg--Rt --FAD 12 ocl--SCV/US---neg Impaired fasting glucose 02/20/2011 HYPERCHOLESTEROLEMIA 07/08/2003 009 Overview: Per Lipid Taxonomy. Rx refused, attempting lifestyle changes Senile cataract 07/08/2003 02/03/2018 documented as of this encounter (statuses as of 07/12/2023) Immunizations Name Administration Dates Next Due COVID-19 mRNA, LNP-s, No Pre serve, 2-Dose Series (Applitools) 03/16/2021,01/11/2021 documented as of this encounter Social [...] encounter Miscellaneous Notes * Telephone Encounter - Cortney Graham OSA - 07/12/2023 9:22 AM EDT Pt needs to schedule [employer] [[employer]] (Order [id number]) - Reflex for Order [id number] LMOM 07/12/2023 RMK documented in this encounter Plan of Treatment Upcoming Encounters Date Type Department Care Team (Late st Contact Info) Description 07/23/2023 12:30 PM EDT Office Visit Gastroenterology, [place] [facility] [address] [place] [phone] Renetta Hernandez PA-C [address] [facility] [place] [address] 08/19/2023 11:20 AM EDT [facility] [place] [address] [place] [address] Nicole Gamble MD [address] [facility] [place] [address] Health Maintenance Due Date Last Done Comments DTaP,Tdap,and Td Vaccines (1 - Tdap) 1954 Zoster Vaccines (1 of 2) 09/08/1987 Pneumococcal Vaccine: 65+ Years (1 of 1 - PCV) 2002 DXA Scan 05/17/2012 05/17/2010, 05/17/2010 *BISPHONATE OR OTHER ACCEPTABLE MEDICATION NEEDED FOR OSTEOPOROSIS (REFER TO SMARTSET #1146) 01/12/2016 COVID-19 Vaccine ( season) 2022 03/16/2021, 01/11/2021 Depression Screening 04/17/2023 04/17/2022 Influenza Vaccine (FLU shot) (Season Ended) 2023 HbA1c 06/19/2024 06/20/2023, 12/07, 04/17/2022, Additional history exists Albumin/Creatinine Ratio 04/17/2025 04/17/2022 VITAMIN D LEVEL ONCE IN A LIFETIME-USE SMARTSET# [id number] Completed 06/20/2023, 12/21/2022, 04/17/2022, Additional history exists [...] filedocumented as of this encounter Care Teams Narrow Gauge Operator Relationship Specialty Start Date End Date Nicole Gamble MD 200 [place] [address] PCP - General Internal Medicine 11/21/10 documented as of this encounter
--- OUTSIDE RECORDS SUMMARY | 2023-11-08 17:13 | External Medical Summary | Summary of Care ---
Author Name Unknown Organization [facility] Address [address] [place] [address] Phone [phone] Care Team Providers Care Hotel Associate Name Role Phone Nicole Gamble MD Primary Care Provider Reason for Visit * Reason Onset Date Comments Test Results 07/30/2023 Encounter Details Date Type Department Care Team (Late st Contact Info) Description 07/30/2023 Telephone General Internal Medicine [facility] [address] [place] [address] Sean Servin MD [address] [place] [address] Test Results Allergies Active Allergy Reactions Criticality Noted Date Comments Benzonatate Other (Please comment) Medium 02/20/2011 Feeling "spaced out" documented as of this encounter (statuses as of 07/30/2023) Medications Medication Sig Dispensed Refills Start Date [...] and 1 Tablet before bedtime. Started by [facility] ER 03/16/23 , US arm 3rd wk fe. Do not start before May 11, 2023. [...] as of this encounter (statuses as of 07/30/2023) Active Problems Problem Noted Date Diagnosed Date [...] with routine he aling 05/09/2020 Overview: 12/2019-panchito Leone-[facility] Gastroesophageal reflux disease without esophagi tis 07/21/2019 Paroxysmal A-fib 09/23/2018 Immunization refused 02/03/2018 Status post cataract extraction 02/03/2018 Advanced directives, counseling/discussion 08/29 Family history of diabetes mellitus 06/19/2011 Papanicolaou smear 06/19/2011 Overview: Vag smear - 2003--no iel. Per [employer]ER [employer] TECHNICIAN Note--2003--S/P WALDEMAR done in 1973 and BSO [...] as of this encounter (statuses as of 07/30/2023) Resolved Problems Problem Noted Date Diagnosed Date [...] as of this encounter (statuses as of 07/30/2023) Immunizations Name Administration Dates Next Due COVID-19 mRNA, LNP-s, No Pre serve, 2-Dose Series (conXt) 03/16/2021,01/11/2021 documented as of this encounter Social [...] encounter Miscellaneous Notes * Telephone Encounter - Gianna Roberto MED ASSIST - 07/30/2023 11:50 AM EDT Patient aware and verbalized understanding * Telephone Encounter - Gianna Roberto MED ASSIST - 07/30/2023 11:48 AM EDT ----- Message from Sean Servin MD sent at 07/26/2023 1:52 PM EDT ----- Liver ultrasound looks ok, would continue recs from pcp for elevated alk phos documented in this encounter Plan of Treatment Upcoming Encounters Date Type Department Care Team (Late st Contact Info) Description 07/31/2023 11:00 AM EDT Office Visit Gastroenterology, [address] [place] [address] [place] [address] Renetta Hernandez PA-C [facility] [address] [place], [place] [id number] 08/19/2023 11:20 AM EDT Office Visit General Internal Medicine [facility] [address] [place] [address] Nicole Gamble MD 200 [facility] [place] [address] Health Maintenance Due Date Last Done Comments DTaP,Tdap,and Td Vaccines (1 - Tdap) 1954 Zoster Vaccines (1 of 2) 09/08/1987 Pneumococcal Vaccine: 65+ Years (1 of 1 - PCV) 2002 DXA Scan 05/17/2012 05/17/2010, 05/17/2010 *BISPHONATE OR OTHER ACCEPTABLE MEDICATION NEEDED FOR OSTEOPOROSIS (REFER TO SMARTSET #1146) 01/12/2016 COVID-19 Vaccine (3 2022- season) 2022 03/16/2021, 01/11/2021 Depression Screening 04/17/2023 04/17/2022 Influenza Vaccine (FLU shot) (Season Ended) 2023 HbA1c 06/19/2024 06/20/2023, 12/07, 04/17/2022, Additional history exists Albumin/Creatinine Ratio 04/17/2025 04/17/2022 VITAMIN D LEVEL ONCE IN A LIFETIME-USE SMARTSET# 11504 Completed 06/20/2023, 12/21/2022, 04/17/2022, Additional history exists [...] filedocumented as of this encounter Care Teams Hotel Associate Relationship Specialty Start Date End Date Nicole Gamble MD 200 [facility] [place] [address] PCP - General Internal Medicine 11/21/10 documented as of this encounter
--- OUTSIDE RECORDS SUMMARY | 2023-11-08 17:13 | External Medical Summary | Summary of Care ---
Author Name Unknown Organization [facility] Address [address] [place] [address] Phone [phone] Care Team Providers Care Entry Level Project Coordinator Name Role Phone Nicole Gamble MD Primary Care Provider [phone] Reason for Visit * Reason Comments NEW PATIENT Elevated alkaline ph oshatase * Evaluate & Treat - Unlimited Visits (Within 10 days (routine)) - Authorized Specialty Diagnoses / Procedures Referred By Yaquelin valentin Referred To Contact Gastroenterology Diagnoses Elevated alkaline phosphatase level Nicole Gamble MD [address] [place] [address] Referral ID Status Reason Start Date Expiration Date Visits Requested Visits Authorized [id number] Authorized Specialty Services Required 07/02/2023 [id number] Encounter Details Date Type Department Care Team (Late st Contact Info) Description 08/09/2023 11:00 AM EDT Office Visit Gastroenterology, [facility] [address] [place] [phone] Yelena Moreau PA-C [address] [place] [id number] Elevated alkaline phosphatase level* Allergies Active Allergy Reactions Criticality Noted Date Comments Benzonatate Other (Please comment) Medium 02/20/2011 Feeling "spaced out" documented as of this encounter (statuses as of 08/09/2023) Medications Medication Sig Dispensed Refills Start Date End Date Status Vitamin D-3 25 MCG (1000 UT) Oral Capsule Take 1 Capsule by mouth in the morning. 0 Active Ondansetron HCl 4 MG Oral TabletIndications:B ilateral upper abdominal discomfort,Nausea without vomiting Take 1 Tablet by mouth every 8 hours as needed for Nausea. 30 Tablet 0 12/21/2022 Active traMADol HCl 50 MG Oral Tablet (Ultram)Indications :Closed fracture of shaft of left humerus with routine healing, unspecified fracture morphology, subsequent encounter Take 1 Tablet by mouth every 8 hours as needed. 0 02/08/2023 Active Famotidine 20 MG Oral Tablet (Pepcid)Indications :Gastroesophageal reflux disease without esophagitis Take 1 Tablet by mouth daily. 90 Tablet 3 04/07/2023 Active Apixaban 5 MG Oral Tablet (Eliquis)Indication s:Acute deep vein thrombosis (DVT) of brachial vein of left upper extremity (HCC),Closed fracture of shaft of left humerus with routine healing, unspecified fracture morphology, subsequent encounter Take 1 Tablet by mouth in the morning and 1 Tablet before bedtime. Started by [facility] 03/16/23 , US arm 3rd wk may. Do not start before May 11, 2023. 60 Tablet 0 05/11/2023 Active Additional Information Patient not taking.Reported on 08/09/2023 Loratadine 10 MG Oral Tablet (Claritin)Indicatio ns:Post-nasal drip Take 1 Tablet by mouth at bedtime. 30 Tablet 11 05/02/2023 Active Additional Information Patient not taking.Reported on 08/09/2023 Metoprolol Succinate ER 25 MG Oral Tablet Extended Release 24 Hour (toPROL XL)Indications:Paro xysmal A-fib (HCC),HTN, goal below 140/90 TAKE 1 TABLET BY MOUTH IN THE MORNING 90 Tablet 3 07/04/2023 Active documented as of this encounter (statuses as of 08/09/2023) Active Problems Problem Noted Date Diagnosed Date [...] humerus with routine he aling 05/09/2020 Overview: 12/2019-fu [facility] Gastroesophageal reflux disease without esophagi tis 07/21/2019 Paroxysmal A-fib 09/23/2018 Immunization refused 02/03/2018 Status post cataract extraction 02/03/2018 Advanced directives, counseling/discussion 08/29 Family history of diabetes mellitus 06/19/2011 Papanicolaou smear 06/19/2011 Overview: Vag smear - 2003--no iel. Per BRAND MARKETING MANAGER Note--2003--S/P WALDEMAR done in 1973 and BSO [...] as of this encounter (statuses as of 08/09/2023) Resolved Problems Problem Noted Date Diagnosed Date [...] as of this encounter (statuses as of 08/09/2023) Immunizations Name Administration Dates Next Due COVID-19 mRNA, LNP-s, No Pre serve, 2-Dose Series ([employer]) 03/16/2021,01/11/2021 documented as of this encounter Social [...] on file documented as of this encounter Last Filed Vital Signs Vital Sign Reading Time Taken Comments Blood Pressure 150/90 08/09/2023 10:56 AM EDT Pulse 89 08/09/2023 10:56 AM EDT Temperature 36.4 C (97.5 F) 08/09/2023 1 0:56 AM EDT Respiratory Rate 18 08/09/2023 10:5 6 AM EDT Oxygen Saturation - - Inhaled Oxygen Concentration - - Weight 71.6 kg (157 lb 12.8 oz) 024 10:56 AM EDT Height 167.6 cm (5' 6") 08/09/2023 10:5 6 AM EDT Body Mass Index 25.47 08/09/2023 10:56 AM EDT documented in this encounter Progress Notes * Yelena Moreau PA-C - 08/09/2023 10:59 AM EDT PCP: PCP: NICOLE GAMBLE [address] [place] [address], [place] [id number] CC: elevated ALP HPI: 87 year old female with a hx of HTN, Afib/on eliquis, DLD, GERD, osteoporosis and others, referred today for evaluation of elevated ALP. Chart review shows a fairly consistent elevation since 2020, and intermittently prior to that. Patient is feeling well and denies any abdominal pain or upper GI symptoms. Bowels are moving regularly, about twice daily. No red blood or dark stools. She does not drink ETOH. No hx if IV or IN drug use. No piercings/tattoos. Unsure of hx of prior blood transfusion, but does not think so. Denies use of herbal meds or anything that is not on her med list. Uses Tylenol rarely, and only one tablet daily when she does. RUQ ultrasound 07/18/23 - IMPRESSION: Status post cholecystectomy. Within normal limits. CTAP 01/18/21 - FINDINGS LINES AND DEVICES: None. LOWER CHEST: Mitral annular calcifications. There are aortic root and coronary artery calcifications. Small hiatal hernia. LIVER: Within normal limits. BILE DUCTS: Within normal limits. GALLBLADDER: Status post cholecystectomy. PANCREAS: Mild fatty atrophy. SPLEEN: Within normal limits. ADRENALS: There is a 3.2 x 2.5 cm right adrenal nodule. The precontrast density measurement is 7.56Hounsfield units. The postcontrast density measurement is 63.8 Hounsfield units. The delayed density measurement is 22.2 Hounsfield units. The absolute washout is 73.9%. The relative washout is 65.2%. KIDNEYS/URETERS: Bilateral cysts. BOWEL: There is no bowel obstruction. There is sigmoid diverticulosis without evidence for diverticulitis. BLADDER: Unremarkable REPRODUCTIVE ORGANS: The uterus is not identified and may have been surgically removed. LYMPH NODES: Within normal limits. VESSELS: Extensive atherosclerotic calcifications. PERITONEUM/RETROPERITONEUM: No ascites, free air, or fluid collections. ABDOMINAL WALL/SOFT TISSUES: Within normal limits. BONES: There are degenerative changes of the spine and hips. There is mild anterolisthesis of L4 onL5 which is likely on a degenerative basis. ROS: Constitutional: no weight loss, no weakness, and no fatigue Eyes: no worsening of vision and no eye pain, redness, discharge ENT: no hearing loss, no congestion, no runny nose, no sore throat Resp: no cough, no sputum, no wheezing, and no SOB Cardiac: no chest pain, no orthopnea, and no dyspnea on exertion Female : no dysuria and no incontinence Neuro: no memory loss and no weakness Heme: no fever, no chills, no sweats, and no bleeding/bruising Endo: no unplanned weight change, no excessive thirst, and no excessive urination Skin: no rash, no itching, and no new/changing skin lesions ALLERGIES: Review of patient's allergies indicates: Allergen Reactions Benzonatate Other (Please comment) Feeling "spaced out" Current Outpatient Medications Medication Sig Dispense Refill Vitamin D-3 25 MCG (1000 UT) Oral Capsule Take 1 Capsule by mouth in the morning. Ondansetron HCl 4 MG Oral Tablet Take 1 Tablet by mouth every 8 hours as needed for Nausea. 30 Tablet 0 Famotidine 20 MG Oral Tablet (Pepcid) Take 1 Tablet by mouth daily. 90 Tablet 3 Metoprolol Succinate ER 25 MG Oral Tablet Extended Release 24 Hour (toPROL XL) TAKE 1 TABLET BY MOUTH IN THE MORNING 90 Tablet 3 traMADol HCl 50 MG Oral Tablet (Ultram) Take 1 Tablet by mouth every 8 hours as needed. (Patient not taking: Reported on 08/09/2023) Apixaban 5 MG Oral Tablet (Eliquis) Take 1 Tablet by mouth in the morning and 1 Tablet before bedtime. Started by [facility] 03/16/23 , US arm 3rd wk may. Do not start before May 11, 2023. (Patient not taking: Reported on 08/09/2023) 60 Tablet 0 Loratadine 10 MG Oral Tablet (Claritin) Take 1 Tablet by mouth at bedtime. (Patient not taking: Reported on 08/09/2023) 30 Tablet 11 No current facility-administered medications for this visit. Past Medical History: Diagnosis Date Blepharitis Encounter for screening mammogram for breast cancer 02/27/201103/21-Lt neg;-Rt FAD-GAV/US-neg rec 6mth fu+++++ Neg 02/17;;03/20; 02/16--left --neg--Rt --FAD 12 ocl--GAV/US---neg Generalized anxiety disorder 07/07/2004 GERD (gastroesophageal reflux disease) 01/23/2012 HTN, goal below 140/90 02/20/2011 HYPERCHOLESTEROLEMIA 07/08/2003 Impaired fasting glucose 02/20/2011 Senile cataract OU Senile osteoporosis 01/23/201108/19-ref meds. 06/17---REFUSES meds/hiroc DEXA:05/2010: Lumbar spine: -3.9/ Femoral neck:-3.3 high risk Special screening for malignant neoplasms, colon 06/19/201106/17---declines csope--will do fobt --08/19-same Past Surgical History: Procedure Laterality Date LAPAROSCOPY; CHOLECYSTECTOMY 02/06 Naomy LASERING OF SECONDARY CATARACT Bilateral 08/2018 REMOVAL OF OVARY/OVIDUCT(S) 1975 REMOVE CATARACT, INSERT LENS PROSTH Bilateral 09/22,10/22 [facility] TOTAL ABD HYSTERECTOMY W/WO REMOVAL OF TUBE(S) 1973 WALDEMAR- Family History Problem Relation Age of Onset Diabetes Brother No Past Hx Brother Hypertension Sister sec left RASt-sp stent 10/21 SOCIAL HISTORY: Social History Tobacco Use Smoking status: Never Smokeless tobacco: Never Substance Use Topics Alcohol use: No Vaping/E-Cigarette Use Vaping/E-Cigarette Use Never User Passive Exposure No Counseling Given? No Vaping/E-Cigarette Substances Vaping/E-Cigarette Devices PHYSICAL EXAM BP 150/90 | Pulse 89 | Temp 36.4 C (97.5 F) | Resp 18 | Ht 1.676 m (5' 6") | Wt 71.6 kg (157 lb12.8 oz) | BMI 25.47 kg/m | BSA 1.83 m GENERAL: alert and no distress HEAD: Normocephalic, No masses, lesions or abnormalities EYES: conjunctiva are pink and non-injected, sclera clear NECK: supple LUNGS: clear to auscultation HEART: regular rate & rhythm ABDOMEN: abdomen soft, non-tender, normal bowel sounds, and no masses or organomegaly EXTREMITIES: no edema NEURO: alert & oriented x 3 with fluent speech, no focal motor/sensory deficits ASSESSMENT: ICD-10-CM 1. Elevated alkaline phosphatase level R74.8 PLAN: Abbreviated serologic work up will be obtained, including fractionation of ALP. Results will be communicated to the patient. Further testing/follow up will be determined pending results. Yelena Moreau PA-C documented in this encounter Nursing Notes * Mecca Rendon RN - 08/09/2023 10:56 AM EDT Chief Complaint Patient presents with NEW PATIENT Elevated alkaline phoshatase PT states liver US was ok, denies and GI complaints. Bowels move daily, no melena/BRB. documented in this encounter Plan of Treatment Upcoming Encounters Date Type Department Care Team (Late st Contact Info) Description 08/19/2023 11:20 AM EDT Office Visit General Internal Medicine [facility] Morales [address] [place] [address] Nicole Gamble MD [address] [facility] [place] [address] Scheduled Orders Name Type Priority Associated Diagnoses Orde r Schedule ANTINUCLEAR ANTIBODY (KIMMY) EIA SCREEN WITH REFLEX AB QUANT Lab Routine Elevated alkaline phosphatase level Expected: 08/09/2023 (Approximate), Expires: 08/08/2024 ACTIN (SMOOTH MUSCLE) ANTIBODY (IGG) Lab Routine Elevated alkaline phosphatase level Expected: 08/09/2023 (Approximate), Expires: 08/08/2024 IGG Lab Routine Elevated alkaline phosphatase level Expected: 08/09/2023 (Approximate), Expires: 08/08/2024 MITOCHONDRIAL ANTIBODY Lab Routine Elevated alkaline phosphatase level Expected: 08/09/2023 (Approximate), Expires: 08/08/2024 IRON SCREEN, INCLUDING TIBC Lab Routine Elevated alkaline phosphatase level Expected: 08/09/2023 (Approximate), Expires: 08/08/2024 FERRITIN Lab Routine Elevated alkaline phosphatase level Expected: 08/09/2023 (Approximate), Expires: 08/08/2024 ACUTE HEPATITIS PANEL Lab Routine Elevated alkaline phosphatase level Expected: 08/09/2023 (Approximate), Expires: 08/08/2024 SERUM PROTEIN ELECTROPHORESIS REFLEX PROFILE Lab Routine Elevated alkaline phosphatase level Expected: 08/09/2023 (Approximate), Expires: 08/08/2024 ALKALINE PHOSPHATASE FRACTIONATION Lab Routine Elevated alkaline phosphatase level Expected: 08/09/2023 (Approximate), Expires: 08/08/2024 Health Maintenance Due Date Last Done Comments [...] D LEVEL ONCE IN A LIFETIME-USE SMARTSET# [id number] Completed 06/20/2023, 12/21/2022, 04/17/2022, Additional history exists [...] as of this encounter Visit Diagnoses Diagnosis Elevated alkaline phosphatase level- Primary Other nonspecific abnormal serum enzyme levels documented in this encounter Care Teams Entry Level Project Coordinator Relationship Specialty Start Date End Date Nicole Gamble MD [address] [facility] [place] [address] PCP - General Internal Medicine 11/21/10 documented as of this encounter
--- OUTSIDE RECORDS SUMMARY | 2023-11-08 17:13 | External Medical Summary | Summary of Care ---
Author Name Unknown Organization [facility] Address [address] [place] [address] Phone [phone] Care Team Providers Care Superintendent Building Name Role Phone Nicole Gamble MD Primary Care Provider [phone] Reason for Referral * (Within 10 days (routine)) - Authorized Specialty Diagnoses / Procedures Referred By Yaquelin valentin Referred To Contact Radiology Diagnoses Elevated alkaline phosphatase level Procedures US ABDOMEN LIMITED Nicole Gamble MD [address] [place] [address] Referral ID Status Reason Start Date Expiration Date V isits Requested Visits Authorized [id number] Authorized 07/03/2023 [id number] Reason for Visit * (Within 10 days (routine)) - Authorized Specialty Diagnoses / Procedures Referred By Yaquelin valentin Referred To Contact Radiology Diagnoses Elevated alkaline phosphatase level Procedures US ABDOMEN LIMITED Nicole Gamble MD [address] [place] [address] Referral ID Status Reason Start Date Expiration Date V isits Requested Visits Authorized [id number] Authorized 07/03/[phone] Encounter Details Date Type Department Care Team (Latest Contact Info) Description 07/18/2023 9:16 AM EDT - 07/18/2023 11:59 PM EDT Hospital Encounter Radiology, [address] [address] Arrived Discharge Disposition: Home - Self Care Allergies Active Allergy Reactions Criticality Noted Date Comments Benzonatate Other (Please comment) Medium 02/20/2011 Feeling "spaced out" documented as of this encounter (statuses as of 07/19/2023) Medications Medication Sig Dispensed Refills Start Date [...] bedtime. Started by [facility] 03/16/23 , US arm 3rd wk [...] as of this encounter (statuses as of 07/19/2023) Active Problems Problem Noted Date Diagnosed Date [...] 05/09/2020 Overview: 12/2019-fu [facility] Gastroesophageal reflux disease without esophagi tis 07/21/2019 Paroxysmal A-fib 09/23/2018 Immunization refused 02/03/2018 Status post cataract extraction 02/03/2018 Advanced directives, counseling/discussion 08/29 Family history of diabetes mellitus 06/19/2011 Papanicolaou smear 06/19/2011 Overview: Vag smear - 2003--no iel. 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'S ATTENDANT Note--2003--S/P WALDEMAR done in 1973 and BSO [...] as of this encounter (statuses as of 07/19/2023) Resolved Problems Problem Noted Date Diagnosed Date [...] as of this encounter (statuses as of 07/19/2023) Immunizations Name Administration Dates Next Due COVID-19 mRNA, LNP-s, No Pre serve, 2-Dose Series ([email or web address]) 03/16/2021,01/11/2021 documented as of this encounter Social [...] on file documented as of this encounter Plan of Treatment Upcoming Encounters Date Type Department Care Team (Late st Contact Info) Description 07/23/2023 12:30 PM EDT Office Visit Gastroenterology, [address] [place] [address] [address] [place] [address] Renetta Hernandez PA-C [facility] [place] [address] 08/19/2023 11:20 AM EDT Office Visit General Internal Medicine [facility] [address] [place] [address] Nicole Gamble MD [address] [place] [address] Health Maintenance Due Date Last Done Comments [...] D LEVEL ONCE IN A LIFETIME-USE SMARTSET# [id number] Completed 06/20/2023, 12/21/2022, 04/17/2022, Additional history exists [...] Not on filedocumented as of this encounter Procedures Procedure Name Priority Date/Time Associated Diagnosis Comments US ABDOMEN LIMITED Routine 07/18/2023 9: 54 AM EDT Elevated alkaline phosphatase level documented in this encounter Results * US ABDOMEN LIMITED (07/18/2023 9:54 AM EDT) Anatomical Region Laterality Modality Abdomen, Body Ultrasound 07/18/2023 10:1 2 AM EDT Impressions 07/18/2023 10:10 AM EDT IMPRESSION: Status post cholecystectomy. Within normal limits. Narrative 07/18/2023 10:10 AM EDT EXAM: US ABDOMEN LIMITED HISTORY: abn alk phos TECHNIQUE: Real-time scanning is performed right upper quadrant COMPARISON: CT abdomen pelvis dated 01/18/2021; CT abdomen dated 09/21/2020 FINDINGS: Gallbladder: Not identified compatible with patient's history prior cholecystectomy. No intrahepatic biliary dilatation. There is no extrahepatic biliary dilatation with the common duct measuring approximately 4 mm. There is no gross choledocholithiasis. Liver: Size length: Right lobe approximate 14.4 cm. Visualized parenchyma relatively homogeneous and within normal limits as to echotexture without discrete focal lesion. Visualized surface contour smooth without nodularity. Ascites: None demonstrated right upper quadrant Pancreas: Unfortunately, pancreatic bed somewhat obscured by overlying bowel. Particularly distal body and tail of pancreas obscured. Visualized parenchyma demonstrates no discrete focal lesion or pancreatic ductal dilatation. Right Kidney: Size length: 9.7 cm. Contour relatively maintained. In the upper aspect of the kidney there is an ovoid well-defined sonolucent (allowing for technical artifact) structure ultrasonographically compatible with cyst measuring 1.1 cm x 1.1 cm x 1.1 cm. No other focal lesion identified. Cortex appears maintained in regard to thickness/echotexture. No hydronephrosis. No demonstrable intrarenal calculus or perinephric abnormality. Right pleural effusion: None demonstrated. Procedure Note Magdaleno Carson MD - 07/18/2023 EXAM: US ABDOMEN LIMITED HISTORY: abn alk phos TECHNIQUE: Real-time scanning is performed right upper quadrant COMPARISON: CT abdomen pelvis dated 01/18/2021; CT abdomen dated 09/21/2020 FINDINGS: Gallbladder: Not identified compatible with patient's history priorcholecystectomy. No intrahepatic biliary dilatation. There is no extrahepatic biliarydilatation with the common duct measuring approximately 4 mm. There is nogross choledocholithiasis. Liver: Size length: Right lobe approximate 14.4 cm. Visualized parenchyma relatively homogeneous and within normal limits asto echotexture without discrete focal lesion. Visualized surface contoursmooth without nodularity. Ascites: None demonstrated right upper quadrant Pancreas: Unfortunately, pancreatic bed somewhat obscured by overlyingbowel. Particularly distal body and tail of pancreas obscured.Visualized parenchyma demonstrates no discrete focal lesion or pancreaticductal dilatation. Right Kidney: Size length: 9.7 cm. Contour relatively maintained. In theupper aspect of the kidney there is an ovoid well-defined sonolucent(allowing for technical artifact) structure ultrasonographicallycompatible with cyst measuring 1.1 cm x 1.1 cm x 1.1 cm. No other focallesion identified. Cortex appears maintained in regard tothickness/echotexture. No hydronephrosis. No demonstrable intrarenal calculus or perinephric abnormality. Right pleural effusion: None demonstrated. IMPRESSION IMPRESSION: Status post cholecystectomy. Within normal limits. Nicole Gamble MD RAD ULTRASOUND documented in this encounter Visit Diagnoses Diagnosis Elevated alkaline phosphatase level Other nonspecific abnormal serum enzyme levels documented in this encounter Care Teams Superintendent Building Relationship Specialty Start Date End Date Nicole Gamble MD [address] [place] [address] PCP - General Internal Medicine 11/21/10 documented as of this encounter
--- NOTE | 2023-11-08 17:16 | Emergency Department Note ---
Impression & Plan Acute lower GI bleeding ED Provider Note NAME: RADU ARRINGTON AGE: 88 SEX: Female INFORMANT: Patient ED PROVIDER(S): Orlin Tejada MD CHIEF COMPLAINT: Rectal bleeding PLAN: Disposition: Admitted Outpatient prescription management: none Referral: None patient presented because of rectal bleeding. MEDICAL DECISION MAKING: Rectal examination revealed Hemoccult positive brown stool. There was no signs of active bleeding externally. There was a small external hemorrhoid that was nonthrombosed. Patient had a leukocytosis on CBC but no significant anemia. Given the leukocytosis and 2 episodes of bloody bowel movements CT imaging was performed. Patient did have a benign abdominal examination. Patient underwent CT imaging and no acute findings were noted. Diverticulosis was noted. Suspect that this is a lower GI bleed. Given the multiple episodes discussed further evaluation and management in the hospital. Patient was in agreement. [facility] Patient was evaluated in the ER and admitted for further management. 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 Vital Signs: reviewed and remarkable for hypertension Additional History obtained from: none Chronic Medical/Social Conditions affecting care: GERD, hypertension Prior/ Outside/ External records reviewed: none Differential Diagnosis: Diverticulosis, AVM, coagulopathy, colitis, inflammatory bowel disease, malignancy, Wendy-Mayer tear, esophagitis, peptic ulcer disease, variceal bleed, gastritis, epistaxis, fissure, hemorrhoids, as well as other pathologies. Diagnostics, independently interpreted by me: ECG: Twelve-lead ECG reveals a normal sinus rhythm at 82 bpm. Left axis deviation. No ST elevation or depression Cardiac Monitoring: Cardiac monitoring ordered by me: The patient was placed on continuous cardiac monitoring and observed. It revealed a normal sinus rhythm at 80 beats per minute without ectopy or evidence of dysrhythmia. Medical decision rules: none Imaging studies: I refer you to the EMR for further details. HPI: 88 year old Female arrives for evaluation of rectal bleed. This started today and is described as 2 large bloody red bowel movements. Brown stool mixed in, no melena or constipation symptoms. The patient also notes the following associated symptoms, none. The patient has taken no medication for relieving factors. Current pain is rated as 0/10. Pt denies LOC, headache, fevers, chills, diaphoresis, visual changes, neck pain, chest pain, breathing difficulties, nausea, vomiting, abdominal pain, back pain, melena, urinary symptoms, numbness, weakness, lymphadenopathy, rash, or other complaints.. PAST MEDICAL HISTORY: See Below, hypertension PAST SURGICAL HISTORY: See Below, SOCIAL HISTORY: See Below, retired HOME MEDICATIONS: See Below ALLERGIES: See Below VITALS: See Below PHYSICAL EXAMINATION: GENERAL: Awake, alert, well-appearing, in no distress HENT: Normocephalic, atraumatic. Oropharynx unremarkable. EYES: Normal conjunctiva. Sclera non-icteric. NECK: Inspection normal. Non-tender. Supple. No nuchal rigidity. FROM. No masses. RESPIRATORY: Clear to auscultation. No wheezes. No rales. Normal respiratory effort. CARDIAC: Normal rate. Normal rhythm. No murmurs. No rubs. Extremities warm and well perfused. Pulses equal. No JVD. GI: Soft, non-distended. No tenderness to palpation. No rebound or guarding. No masses. RECTAL: Hemoccult positive. Brown stool. Nonthrombosed external hemorrhoid present without signs of bleeding. MUSCULOSKELETAL: Atraumatic. Chest examination reveals no tenderness. The back is symmetrical on inspection without obvious abnormality. There is no CVA tenderness to palpation. No joint edema. LOWER EXTREMITIES: Calves are equal size bilaterally and non-tender. No edema. No discoloration. NEURO: Normal sensorium. No sensory or motor deficits noted. SKIN: No rash or jaundice noted. PROCEDURES: none CRITICAL CARE: none OBSERVATION NOTE: none Past Med/Surg History Problem List (Updated 11/08/23 @ 19:17 by Rocael Bowman MD) Hematochezia Acute lower GI bleeding (Acute) Left humeral fracture Osteoporosis (Chronic) HTN (hypertension) (Chronic) Vitamin D deficiency (Chronic) GERD (gastroesophageal reflux disease) (Chronic) Dyslipidemia (Chronic) Surgical History Status post cataract extraction and insertion of intraocular lens Status post cholecystectomy Status post hysterectomy Family History Sister Leukemia Brother Diabetes Daughter Lymphoma Social History Smoking Status: Former smoker Hx Alcohol Use: No Hx Substance Use: No Preferred Language: Bermudian Communication Ability: Effective Human Resources Designate Required: No Beliefs That Will Affect Care: None Current Living Situation: Alone Feels Safe at Home: Yes Assistive Devices: None Allergies Allergies Allergy/AdvReac Type Severity Reaction Status Date / Time benzonatate AdvReac Intermediate "FELT Verified 11/08/23 16:47 SPACED OUT" Home Meds Home Medications Medication Instructions Recorded Confirmed metoprolol succinate 25 mg 25 mg PO QAM 12/27/19 11/08/23 tablet,extended release 24 hr famotidine 20 mg tablet 20 mg PO QAM 11/08/23 11/08/23 Results & Data (ED) Vital Signs Vital Signs - 24 hr 11/08/23 12:33 11/08/23 13:09 11/08/23 13:18 Temperature 36.6 C Temperature Source Temporal Artery Scan Pulse Rate 94 H 87 88 Pulse Rate [Apical] Pulse Rate from SpO2 Sensor 86 Pulse Rhythm Regular Pulse Strength Normal Respiratory Rate 20 16 Respiratory Effort / Characteristics Non-Labored Spontaneous Respiratory Depth Normal Respiratory Pattern Regular Blood Pressure 182/68 H Blood Pressure [Right Arm] Blood Pressure Mean 106 Blood Pressure Mean [Right Arm] Blood Pressure Position Sitting Blood Pressure Position [Right Arm] Pulse Oximetry 96 97 97 Oxygen Delivery Method Room Air Room Air Sepsis Recent Fever Within 48 Hours No Sepsis New/Unexplained Change in Mental Status No Sepsis Action Taken by Nursing No Action Required 11/08/23 13:21 11/08/23 13:23 11/08/23 13:30 Temperature Temperature Source Pulse Rate 98 H 83 Pulse Rate [Apical] Pulse Rate from SpO2 Sensor 98 H 84 Pulse Rhythm Pulse Strength Respiratory Rate 22 18 Respiratory Effort / Characteristics Respiratory Depth Respiratory Pattern Blood Pressure 147/96 H Blood Pressure [Right Arm] Blood Pressure Mean 110 Blood Pressure Mean [Right Arm] Blood Pressure Position Blood Pressure Position [Right Arm] Pulse Oximetry 95 97 Oxygen Delivery Method Sepsis Recent Fever Within 48 Hours Sepsis New/Unexplained Change in Mental Status Sepsis Action Taken by Nursing 11/08/23 13:30 11/08/23 13:30 11/08/23 14:00 Temperature Temperature Source Pulse Rate Pulse Rate [Apical] Pulse Rate from SpO2 Sensor Pulse Rhythm Pulse Strength Respiratory Rate Respiratory Effort / Characteristics Respiratory Depth Respiratory Pattern Blood Pressure 151/97 H 151/97 H 129/80 Blood Pressure [Right Arm] Blood Pressure Mean 113 113 82 Blood Pressure Mean [Right Arm] Blood Pressure Position Blood Pressure Position [Right Arm] Pulse Oximetry Oxygen Delivery Method Sepsis Recent Fever Within 48 Hours Sepsis New/Unexplained Change in Mental Status Sepsis Action Taken by Nursing 11/08/23 14:00 11/08/23 14:00 11/08/23 14:09 Temperature Temperature Source Pulse Rate 81 89 Pulse Rate [Apical] Pulse Rate from SpO2 Sensor 81 Pulse Rhythm Pulse Strength Respiratory Rate 17 Respiratory Effort / Characteristics Respiratory Depth Respiratory Pattern Blood Pressure 129/80 Blood Pressure [Right Arm] Blood Pressure Mean 82 Blood Pressure Mean [Right Arm] Blood Pressure Position Blood Pressure Position [Right Arm] Pulse Oximetry 95 Oxygen Delivery Method Sepsis Recent Fever Within 48 Hours Sepsis New/Unexplained Change in Mental Status Sepsis Action Taken by Nursing 11/08/23 14:45 11/08/23 14:57 11/08/23 15:00 Temperature Temperature Source Pulse Rate 74 Pulse Rate [Apical] 80 Pulse Rate from SpO2 Sensor 74 Pulse Rhythm Pulse Strength Respiratory Rate 20 11 L Respiratory Effort / Characteristics Non-Labored Spontaneous Respiratory Depth Normal Respiratory Pattern Regular Blood Pressure 155/93 H Blood Pressure [Right Arm] 153/88 H Blood Pressure Mean 116 Blood Pressure Mean [Right Arm] 109 Blood Pressure Position Blood Pressure Position [Right Arm] Lying Pulse Oximetry 96 94 Oxygen Delivery Method Room Air Sepsis Recent Fever Within 48 Hours Sepsis New/Unexplained Change in Mental Status Sepsis Action Taken by Nursing 11/08/23 15:00 11/08/23 15:00 11/08/23 15:03 Temperature Temperature Source Pulse Rate 78 Pulse Rate [Apical] Pulse Rate from SpO2 Sensor 78 Pulse Rhythm Pulse Strength Respiratory Rate 18 Respiratory Effort / Characteristics Respiratory Depth Respiratory Pattern Blood Pressure 155/93 H 155/93 H Blood Pressure [Right Arm] Blood Pressure Mean 116 116 Blood Pressure Mean [Right Arm] Blood Pressure Position Blood Pressure Position [Right Arm] Pulse Oximetry 96 Oxygen Delivery Method Sepsis Recent Fever Within 48 Hours Sepsis New/Unexplained Change in Mental Status Sepsis Action Taken by Nursing 11/08/23 15:27 11/08/23 15:30 11/08/23 15:30 Temperature Temperature Source Pulse Rate 73 Pulse Rate [Apical] Pulse Rate from SpO2 Sensor 73 Pulse Rhythm Pulse Strength Respiratory Rate 15 Respiratory Effort / Characteristics Respiratory Depth Respiratory Pattern Blood Pressure 169/91 H 169/91 H Blood Pressure [Right Arm] Blood Pressure Mean 119 119 Blood Pressure Mean [Right Arm] Blood Pressure Position Blood Pressure Position [Right Arm] Pulse Oximetry 96 Oxygen Delivery Method Sepsis Recent Fever Within 48 Hours Sepsis New/Unexplained Change in Mental Status Sepsis Action Taken by Nursing 11/08/23 15:30 11/08/23 15:33 11/08/23 15:42 Temperature Temperature Source Pulse Rate 75 84 Pulse Rate [Apical] Pulse Rate from SpO2 Sensor 75 82 Pulse Rhythm Pulse Strength Respiratory Rate 15 19 Respiratory Effort / Characteristics Respiratory Depth Respiratory Pattern Blood Pressure 169/91 H Blood Pressure [Right Arm] Blood Pressure Mean 119 Blood Pressure Mean [Right Arm] Blood Pressure Position Blood Pressure Position [Right Arm] Pulse Oximetry 97 97 Oxygen Delivery Method Sepsis Recent Fever Within 48 Hours Sepsis New/Unexplained Change in Mental Status Sepsis Action Taken by Nursing 11/08/23 16:00 11/08/23 16:00 11/08/23 16:06 Temperature Temperature Source Pulse Rate 77 Pulse Rate [Apical] Pulse Rate from SpO2 Sensor 76 Pulse Rhythm Pulse Strength Respiratory Rate 12 Respiratory Effort / Characteristics Respiratory Depth Respiratory Pattern Blood Pressure 167/93 H 167/93 H Blood Pressure [Right Arm] Blood Pressure Mean 124 124 Blood Pressure Mean [Right Arm] Blood Pressure Position Blood Pressure Position [Right Arm] Pulse Oximetry 97 Oxygen Delivery Method Sepsis Recent Fever Within 48 Hours Sepsis New/Unexplained Change in Mental Status Sepsis Action Taken by Nursing 11/08/23 16:30 11/08/23 16:30 11/08/23 17:00 Temperature Temperature Source Pulse Rate 82 77 Pulse Rate [Apical] Pulse Rate from SpO2 Sensor 84 80 Pulse Rhythm Pulse Strength Respiratory Rate 20 19 Respiratory Effort / Characteristics Respiratory Depth Respiratory Pattern Blood Pressure 177/87 H Blood Pressure [Right Arm] Blood Pressure Mean 104 Blood Pressure Mean [Right Arm] Blood Pressure Position Blood Pressure Position [Right Arm] Pulse Oximetry 97 96 Oxygen Delivery Method Sepsis Recent Fever Within 48 Hours Sepsis New/Unexplained Change in Mental Status Sepsis Action Taken by Nursing 11/08/23 17:00 11/08/23 17:00 Temperature Temperature Source Pulse Rate Pulse Rate [Apical] Pulse Rate from SpO2 Sensor Pulse Rhythm Pulse Strength Respiratory Rate Respiratory Effort / Characteristics Respiratory Depth Respiratory Pattern Blood Pressure 154/95 H 154/95 H Blood Pressure [Right Arm] Blood Pressure Mean 118 118 Blood Pressure Mean [Right Arm] Blood Pressure Position Blood Pressure Position [Right Arm] Pulse Oximetry Oxygen Delivery Method Sepsis Recent Fever Within 48 Hours Sepsis New/Unexplained Change in Mental Status Sepsis Action Taken by Nursing Laboratory Data 11/09/23 04:16 11/09/23 04:16 Lab Results 11/08/23 11/08/23 Range/Units 12:42 13:27 WBC 12.63 H (4.8-10.8) K/ul RBC 5.31 (4.20-5.40) M/uL Hgb 15.3 (12.0-16.0) g/dl Hct 46.8 (37.0-47.0) % MCV 88.1 (80.0-100.0) fL MCH 28.8 (25.0-34.0) pg MCHC 32.7 (32.0-36.0) g/dL RDW Std Deviation 47.1 H (36.4-46.3) fL RDW Coeff of Ander 14.9 H (11.5-14.5) % Plt Count 301 (130-400) K/uL MPV 11.6 (9.4-12.4) fL Immature Gran % (Auto) 0.6 % Neut % (Auto) 60.4 % Lymph % (Auto) 31.7 % Hubbard % (Auto) 6.6 % Eos % (Auto) 0.3 % Baso % (Auto) 0.4 % Neut # (Auto) 7.64 H (1.40-6.50) K/uL Lymph # (Auto) 4.00 H (1.20-3.40) K/uL Hubbard # (Auto) 0.83 H (0.11-0.59) K/uL Eos # (Auto) 0.04 (0.00-0.50) K/uL Baso # (Auto) 0.05 (0.00-0.20) K/uL Immature Gran # (Auto) 0.07 (0.01-0.20) K/uL PT 10.5 (9.0-12.0) Seconds INR 1.0 (0.9-1.1) APTT 25 (21-31) Seconds PTT Ratio 0.9 Sodium 138 (136-145) mmol/L Potassium 4.4 (3.5-5.1) mmol/L Chloride 105 (98-107) mmol/L Carbon Dioxide 26 (21-32) mmol/L Anion Gap 7 (3-11) BUN 16 (6-23) mg/dl Creatinine 1.15 (0.6-1.2) mg/dl Est Cr Clr Drug Dosing 35.7 ml/min Est GFR ( Amer) 49.9 ml/min Est GFR (Non-Af Amer) 43.0 ml/min BUN/Creatinine Ratio 13.9 (10-20) Glucose 113 H (70-99(Fasting)) mg/dl Calcium 9.0 (8.6-10.3) mg/dl Total Bilirubin 0.6 (0.2-1.0) mg/dl AST 18 (13-39) U/L ALT 11 (7-52) U/L Alkaline Phosphatase 135 H (34-104) U/L Troponin I High Sens 5.4 (0-14) pg/ml Total Protein 7.2 (6.0-8.3) gm/dl Albumin 4.3 (3.4-5.0) gm/dl Globulin 2.9 (2.5-4.0) gm/dl Albumin/Globulin Ratio 1.5 (0.9-2) POC Stool Occult Blood Positive A (Negative) Administered Medications Famotidine ([facility]idine 20 Mg Tab) [facility] Stop: 12/09/23 08:59 Last Admin: 11/09/23 08:06 Dose: 20 mg Documented By: CONCETTA Pantoprazole Sodium 40 mg/ (Syringe) 10 mls @ 5 mls/min IV BID [facility] Stop: 12/08/23 20:59 Last Admin: 11/09/23 08:06 Dose: 5 mls/min Documented By: Admin: 11/08/23 21:44 Dose: 5 mls/min Documented By: KOSTA Metoprolol Succinate (Metoprolol Succ 25mg Ext Rel Tab) 25 mg PO QAM [facility] Stop: 12/09/23 08:59 Last Admin: 11/09/23 08:06 Dose: 25 mg Documented By: CONCETTA Discontinued Medications Ioversol (Optiray 320 100ml) 91 ml IV ONCE ONE Stop: 11/08/23 14:34 Last Admin: 11/08/23 14:30 Dose: 91 ml Documented By: ART Imaging Data Radiologist's Impression: Abdomen/Pelvis CT 11/08/23 13:[address] WITH IV CONTRAST CT DOSE: 1100.21 mGy.cm HISTORY: rectal bleeding TECHNIQUE: Multiaxial CT images of the abdomen and pelvis were performed following the use of intravenous contrast. A dose lowering technique was utilized adhering to the principles of ALARA. COMPARISON STUDY: None. FINDINGS: The lung bases are clear. No pneumoperitoneum. No pneumatosis. No acute fractures. Mitral annulus calcifications are noted. Prior cholecystectomy. The main portal vein is patent. The liver, spleen, left adrenal gland, and pancreas are unremarkable. Bilateral renal hypodense lesions are noted with the largest on the left measuring 1.5 cm. These favor cysts. However, the majority of these hypodense lesions are technically too small to characterize. There is an indeterminate 2.9 cm right adrenal gland nodule. A few prominent periportal lymph nodes are noted. Moderate to severe calcified plaque within the normal caliber abdominal aorta. No retroperitoneal or pelvic lymphadenopathy. No pelvic free fluid. Normal bladder. Prior hysterectomy. Colonic diverticulosis. No evidence for acute diverticulitis. No bowel wall thickening or obstruction. IMPRESSION: 1. No bowel wall thickening or obstruction. 2. Colonic diverticulosis. No evidence for acute diverticulitis. 3. Prior cholecystectomy and hysterectomy. 4. An indeterminate 2.9 cm right adrenal gland nodule. 5. Additional findings as described above. ACT 112: Negative or not required by law. Electronically signed by: Carroll Ovalle M.D. 11/08/2023 3:04 PM Discharge Plan Visit Data Chief Complaint: Rectal Bleed Stated Complaint: RECTAL BLEEDING ED Provider: Orlin Tejada Discharge Problem: Acute lower GI bleeding Patient Disposition: Admitted As Inpatient Discharge Instructions Interventions: ED Discharge Assessment Last Done: 11/08/23 19:37
--- NOTE | 2023-11-08 19:15 | Electrocardiogram Report ---
Test Reason : Blood Pressure : / mmHG Vent. Rate : 082 BPM Atrial Rate : 082 BPM P-R Int : 158 ms QRS Dur : 078 ms QT Int : 394 ms P-R-T Axes : 049 -31 038 degrees QTc Int : 460 ms Normal sinus rhythm Left axis deviation Abnormal ECG When compared with ECG of 15-MAR-2023 15:52, QRS axis Shifted left Borderline criteria for Inferior infarct are no longer Present Confirmed by Alexys Ugalde ([id number]) on 11/08/2023 7:14:34 PM Referred By: REFERRED SELF Confirmed By:Alexys Ugalde
[2023-11-08] MEDS ORDERED: hydrALAZINE HCL 20 MG/ML VIAL IV PRN (19:22)
--- NOTE | 2023-11-08 19:23 | History & Physical Report ---
Date of Service November 08, 2023 Assessment & Plan (1) Hematochezia: (2) HTN (hypertension): (3) GERD (gastroesophageal reflux disease): Plan 88 year old female with history of HTN, GERD who presented to the ED with 2 episodes of painless rectal bleeding this morning. CT A/P 1. No bowel wall thickening or obstruction. 2. Colonic diverticulosis. No evidence for acute diverticulitis. 3. Prior cholecystectomy and hysterectomy. 4. An indeterminate 2.9 cm right adrenal gland nodule. 5. Additional findings as described above. Hematochezia- details as in HPI. painless, [address] with diverticuli but no acute abnormality. Suspected diverticular bleed, hopefully will be self limiting and will not require transfusion. Hemoglobin 15 which will be trended. Vitals stable. Will continue PPI for now. Full liquid diet for now. Consider GI eval if patient has recurrent hematochezia or significant Hb drop. HTN- continue metoprolol, HLZ prn GERD- continue pepcid. IV PPI for now. DVT ppx- SCD. Hold chemoppx with GI bleed Full code Dispo- Medsurg tele Time spent- 60 mins History of Present Illness Chief Complaint: rectal bleeding Primary Care Provider: Nicole Gamble MD Patient is 88 year old female with history of HTN, GERD who presented to the ED with 2 episodes of painless rectal bleeding this morning. She had no abdominal pain, CP, lightheadedness, dizziness, SOB. No fever or chills. Denies any similar episodes before. The first rectal bleeding was more than the second one. She got concerned and came to the ED. Denies any further bowel movements here. She feels fine. In the ED, she was afebrile and hemodynamically stable. Hemoglobin was 15. CT with diverticuli but no other acute abnormality. She denies prior colonoscopy but had negative Cologuard in 2019. She does not smoke or drink alcohol. She has h/o provoked LUE DVT 03/2023 after acute left humerus fracture 02/2023 treated with Eliquis x 3 months. 05/15/2023 LUE venous Doppler negative for DVT. Known adrenal adenoma CT scan 2020 Allergies Allergy/AdvReac Type Severity Reaction Status Date / Time benzonatate AdvReac Intermediate "FELT Verified 11/08/23 16:47 SPACED OUT" Home Medications Medication Instructions Recorded Confirmed Type metoprolol succinate 25 mg 25 mg PO QAM 12/27/19 11/08/23 History tablet,extended release 24 hr famotidine 20 mg tablet 20 mg PO QAM 11/08/23 11/08/23 History Past Med/Surg History Problem List (Updated 11/08/23 @ 19:17 by Rocael Bowman MD) Hematochezia Acute lower GI bleeding (Acute) Left humeral fracture Osteoporosis (Chronic) HTN (hypertension) (Chronic) Vitamin D deficiency (Chronic) GERD (gastroesophageal reflux disease) (Chronic) Dyslipidemia (Chronic) Surgical History Status post cataract extraction and insertion of intraocular lens Status post cholecystectomy Status post hysterectomy Family History Sister Leukemia Brother Diabetes Daughter Lymphoma Social History Smoking Status: Former smoker Hx Alcohol Use: No Hx Substance Use: No Preferred Language: Icelandic Communication Ability: Effective Autom[employer] Det[employer]er Required: No Beliefs That Will Affect Care: None Current Living Situation: Alone Feels Safe at Home: Yes Assistive Devices: None Review of Systems Review of Systems: All systems reviewed & are unremarkable except as noted in Subjective Physical Exam Physical Exam: General: Lying comfortably in bed, not in distress, on room air HEENT: EOMI, HANNA, MMM Chest: Clear breath sounds bilaterally, no wheezes or crackles CVS: Regular rate and rhythm, normal heart sounds, no murmur Abdomen: Soft, non tender, not distended, normal bowel sounds Neuro: Awake, alert, oriented, conversing well, non focal Extremities: No cyanosis, clubbing or edema Results & Data Results & Data Vital Signs (Past 12 Hours) Vital Signs Temp Pulse Pulse Resp BP BP Pulse Ox 11/08/23 18:00 162/93 H 11/08/23 18:00 162/93 H 11/08/23 17:40 76 11/08/23 17:33 78 20 96 11/08/23 17:30 168/98 H 11/08/23 17:30 168/98 H 11/08/23 17:30 168/98 H 11/08/23 17:30 86 23 97 11/08/23 17:00 154/95 H 11/08/23 17:00 154/95 H 11/08/23 17:00 77 19 96 11/08/23 16:30 82 20 97 11/08/23 16:30 177/87 H 11/08/23 16:06 77 12 97 11/08/23 16:00 167/93 H 11/08/23 16:00 167/93 H 11/08/23 15:42 84 19 97 11/08/23 15:33 75 15 97 11/08/23 15:30 169/91 H 11/08/23 15:30 169/91 H 11/08/23 15:30 169/91 H 11/08/23 15:27 73 15 96 11/08/23 15:03 78 18 96 11/08/23 15:00 155/93 H 11/08/23 15:00 155/93 H 11/08/23 15:00 155/93 H 11/08/23 14:57 74 11 L 94 11/08/23 14:45 80 20 153/88 H 96 11/08/23 14:09 89 11/08/23 14:00 81 17 95 11/08/23 14:00 129/80 11/08/23 14:00 129/80 11/08/23 13:30 151/97 H 11/08/23 13:30 151/97 H 11/08/23 13:30 83 18 97 11/08/23 13:23 147/96 H 11/08/23 13:21 98 H 22 95 11/08/23 13:18 88 97 11/08/23 13:09 87 16 97 11/08/23 12:33 36.6 C 94 H 20 182/68 H 96 O2 Del Method 11/08/23 18:00 11/08/23 18:00 11/08/23 17:40 11/08/23 17:33 11/08/23 17:30 11/08/23 17:30 11/08/23 17:30 11/08/23 17:30 11/08/23 17:00 11/08/23 17:00 11/08/23 17:00 11/08/23 16:30 11/08/23 16:30 11/08/23 16:06 11/08/23 16:00 11/08/23 16:00 11/08/23 15:42 11/08/23 15:33 11/08/23 15:30 11/08/23 15:30 11/08/23 15:30 11/08/23 15:27 11/08/23 15:03 11/08/23 15:00 11/08/23 15:00 11/08/23 15:00 11/08/23 14:57 11/08/23 14:45 Room Air 11/08/23 14:09 11/08/23 14:00 11/08/23 14:00 11/08/23 14:00 11/08/23 13:30 11/08/23 13:30 11/08/23 13:30 11/08/23 13:23 11/08/23 13:21 11/08/23 13:18 Room Air 11/08/23 13:09 11/08/23 12:33 Room Air Laboratory Results Short CBC 11/08/23 Range/Units 12:42 WBC 12.63 H (4.8-10.8) K/ul Hgb 15.3 (12.0-16.0) g/dl Hct 46.8 (37.0-47.0) % Plt Count 301 (130-400) K/uL BMP 11/08/23 12:42 Sodium 138 Potassium 4.4 Chloride 105 Carbon Dioxide 26 BUN 16 Creatinine 1.15 Glucose 113 H Calcium 9.0 Liver Function 11/08/23 Range/Units 12:42 Total Bilirubin 0.6 (0.2-1.0) mg/dl AST 18 (13-39) U/L ALT 11 (7-52) U/L Alkaline Phosphatase 135 H (34-104) U/L Albumin 4.3 (3.4-5.0) gm/dl Diagnostic Findings Abdomen/Pelvis CT 11/08/23 13:[address] WITH IV CONTRAST CT DOSE: 1100.21 mGy.cm HISTORY: rectal bleeding TECHNIQUE: Multiaxial CT images of the abdomen and pelvis were performed following the use of intravenous contrast. A dose lowering technique was utilized adhering to the principles of ALARA. COMPARISON STUDY: None. FINDINGS: The lung bases are clear. No pneumoperitoneum. No pneumatosis. No acute fractures. Mitral annulus calcifications are noted. Prior cholecystectomy. The main portal vein is patent. The liver, spleen, left adrenal gland, and pancreas are unremarkable. Bilateral renal hypodense lesions are noted with the largest on the left measuring 1.5 cm. These favor cysts. However, the majority of these hypodense lesions are technically too small to characterize. There is an indeterminate 2.9 cm right adrenal gland nodule. A few prominent periportal lymph nodes are noted. Moderate to severe calcified plaque within the normal caliber abdominal aorta. No retroperitoneal or pelvic lymphadenopathy. No pelvic free fluid. Normal bladder. Prior hysterectomy. Colonic diverticulosis. No evidence for acute diverticulitis. No bowel wall thickening or obstruction. IMPRESSION: 1. No bowel wall thickening or obstruction. 2. Colonic diverticulosis. No evidence for acute diverticulitis. 3. Prior cholecystectomy and hysterectomy. 4. An indeterminate 2.9 cm right adrenal gland nodule. 5. Additional findings as described above. ACT 112: Negative or not required by law. Electronically signed by: Carroll Ovalle M.D. 11/08/2023 3:04 PM Code Status & VTE Plan VTE Prophylaxis Plan VTE Prophylaxis will be ordered: Yes
[2023-11-08] MEDS ORDERED: ONDANSETRON INJ 2 MG/ML 2 ML VIAL IV PRN (19:37)
[2023-11-08] MEDS ORDERED: ACETAMINOPHEN 325 MG TAB PO PRN (19:37)
[2023-11-08 20:36] LABS: Hematocrit (blood only) 42.9 % (37.0-47.0); Hemoglobin 14.5 g/dl (12.0-16.0)
[2023-11-08] MEDS: PANTOprazole 40 MG in SYRINGE 0 ML IV SCH (21:44)
[2023-11-09 04:42] LABS: Basophils # (auto) 0.04 K/uL (0.00-0.20); Basophils % (auto) 0.4 %; Eosinophils # (auto) 0.22 K/uL (0.00-0.50); Hematocrit (blood only) 40.7 % (37.0-47.0); Hemoglobin 13.6 g/dl (12.0-16.0); Immature Granulocytes # (auto) 0.05 K/uL (0.01-0.20); Immature Granulocytes % (auto) 0.5 %; Lymphocytes # (auto) 4.44 K/uL (1.20-3.40); Lymphocytes % (auto) 40.9 %; Mean Corpuscular Hemoglobin 29.1 pg (25.0-34.0); Mean Corpuscular Hgb Conc 33.4 g/dL (32.0-36.0); Mean Corpuscular Volume 87.2 fL (80.0-100.0); Mean Platelet Volume 11.1 fL (9.4-12.4); Monocytes # (auto) 1.03 K/uL (0.11-0.59); Monocytes % (auto) 9.5 %; Neutrophils # (auto) 5.07 K/uL (1.40-6.50); Neutrophils % (auto) 46.7 %; Platelet Count 246 K/uL (130-400); RDW Coefficient of Variation 14.9 % (11.5-14.5); RDW Standard Deviation 47.1 fL (36.4-46.3); Red Blood Count 4.67 M/uL (4.20-5.40); White Blood Count 10.85 K/ul (4.8-10.8)
[2023-11-09 04:55] LABS: Albumin Globulin Ratio 1.3 (0.9-2); Albumin Level 3.6 gm/dl (3.4-5.0); Bilirubin,Total 0.8 mg/dl (0.2-1.0); Calcium 8.6 mg/dl (8.6-10.3); Creatinine Clr Calc Pharmacy 38.4 ml/min; Est GFR (African American) 54.4 ml/min; Globulin 2.8 gm/dl (2.5-4.0); Potassium 4.1 mmol/L (3.5-5.1); Total Protein 6.4 gm/dl (6.0-8.3)
[2023-11-09] MEDS: METOPROLOL SUCC 25MG EXT REL TAB PO SCH (08:06)
[2023-11-09] MEDS: FAMOTIDINE 20 MG TAB PO SCH (08:06)
--- NOTE | 2023-11-09 10:31 | Discharge Summary ---
Discharge Summary Date of Service November 09, 2023 Principal Dx & Hospital Course #1 = Principal Diagnosis (1) Hematochezia: (2) HTN (hypertension): (3) GERD (gastroesophageal reflux disease): Plan Ms. Herrera is an 88 year old female with history of HTN, GERD who presented to the ED with 2 episodes of painless rectal bleeding 11/07. No further episodes since. CT ABP revealed signs of diverticulosis. Patient without any abdominal pain or other acute concerns. Hgb stable this am. Suspected diverticular bleed. Recommended patient follow up with low fiber diet and disucss OP with PCP. All home medications resumed. Hematochezia, suspect diverticular bleed. painless, [address] with diverticuli but no acute abnormality. Suspected diverticular bleed, hopefully will be self limiting and will not require transfusion. Hemoglobin 15 which will be trended. Vitals stable. No futher bleeding episodes. No abdominal pain. HTN- continue metoprolol GERD- continue pepcid Notes For Next Care Provider Recommended 1-2 week low fiber diet Medication Changes From Visit None Admission Exam Per Admitting Provider General: Lying comfortably in bed, not in distress, on room air HEENT: EOMI, HANNA, MMM Chest: Clear breath sounds bilaterally, no wheezes or crackles CVS: Regular rate and rhythm, normal heart sounds, no murmur Abdomen: Soft, non tender, not distended, normal bowel sounds Neuro: Awake, alert, oriented, conversing well, non focal Extremities: No cyanosis, clubbing or edema Discharge Exam Constitutional WD/WN, vitals as above Respiratory normal respiratory effort, lungs clear to auscultation Cardiovascular RRR, no murmur, no edema Gastrointestinal (Abdomen) normal bowel sounds, soft, nontender, no hepatosplenomegaly Updated Medication List Medication Instructions Recorded Confirmed Type metoprolol succinate 25 mg 25 mg PO QAM 12/27/19 11/08/23 History tablet,extended release 24 hr famotidine 20 mg tablet 20 mg PO QAM 11/08/23 11/08/23 History Hospital Stay Data Diagnostic Imagining Performed 11/08/23 13:53 CT Abd and Pelvis [CT abd pelvis IV con only] Stat Pending Results Patient Have Any Pending Studies at Discharge: No Discharge Instructions Given to Patient (Per Discharging Provider) You were admitted for rectal bleed. You were noted to have diverticulosis on imaging. This kind of bleed can occur and is usually self limited. Please follow a low-fiber diet, some examples are in your discharge paperwork. Please follow up with your pcp in 1-2 weeks for a post-hospitalization follow up. Resume all home medications as prescribed Total Time Total Time Spent Total Time Spent (In Minutes): 35
== END 2023-11-09 12:40 | disposition home or self-care (01) ==
LOC: ED 12:24 → EDINP 12:24 → SUATTDRO 17:19 → EDINP 19:37